=== PATIENT | male | born 1985 | race Caucasian/White ===

== ENCOUNTER 2020-03-11 12:41 | Outpatient (REF) | payer OTHER, SELFPAY ==
--- NOTE | 2020-03-11 | XR_ITS ---
EXAMINATION: XR THORACIC SPINE XR LUMBAR SPINE CLINICAL INFORMATION: Acute right-sided pain. COMPARISON: None TECHNIQUE: Lumbar spine 3 views. Thoracic spine 3 views. FINDINGS: THORACIC SPINE: Mild rightward curvature on the frontal projection. The upper thoracic vertebral bodies are partially obscured on the lateral projection by overlapping soft tissue. No evidence of acute fracture. Disc spaces are relatively maintained. Minimal spondylosis present. LUMBAR SPINE: Mild leftward curvature. Alignment is maintained without subluxation. Vertebral body heights are maintained. No evidence of acute fracture. Mild L5-S1 disc space narrowing. SI joints are intact. IMPRESSION: 1. No evidence of acute osseous abnormality in the thoracic spine. Mild thoracic spondylosis. 2. No acute osseous abnormality evident in the lumbar spine. Mild L5-S1 disc degeneration.
--- NOTE | 2020-03-11 | XR_ITS ---
EXAMINATION: XR CHEST CLINICAL INFORMATION: Mild persistent asthma COMPARISON: 07/20/2018 TECHNIQUE: 2 views of the chest were obtained. FINDINGS: Normal cardiac and mediastinal silhouette. Pulmonary josiane are stable. There is mild peribronchial thickening. No focal consolidation, effusion, edema or pneumothorax. No acute osseous abnormality. IMPRESSION: No evidence of acute consolidation..
[2020-03-12 08:19] LABS: SARS COV2 IgG Negative (Negative)
== END 2020-03-11 12:42 | disposition home or self-care (01) ==
LOC: HO.HMGCLDS 12:41
PROVIDERS: PCP Internal Medicine; Visit Provider Internal Medicine
DX: J45.30 Mild persistent asthma, uncomplicated (principal); M54.9 Dorsalgia, unspecified
CPT/HCPCS: 71046; 72072; 72100; 86769

== ENCOUNTER 2020-04-07 10:04 | Emergency (ER) | payer OTHER, SELFPAY ==
--- NOTE | 2020-04-07 10:21 | ED.ABDPAIN ---
HPI - Abdominal Pain General Chief Complaint: Abdominal Pain <Arline Denise NP - Last Filed: 04/07/20 14:52> Stated Complaint: ABDOMINAL PAIN <Arline Denise NP - Last Filed: 04/07/20 14:52> Time Seen by Provider: 04/07/20 10:15 <Arline Denise NP - Last Filed: 04/07/20 14:52> Source: patient <Arline Denise NP - Last Filed: 04/07/20 14:52> Mode of arrival: ambulatory <Arline Denise NP - Last Filed: 04/07/20 14:52> Limitations: no limitations <Arline Denise NP - Last Filed: 04/07/20 14:52> History of Present Illness HPI narrative: 34-year-old male with a past medical history of asthma, hepatitis B currently here with epigastric and substernal chest pain for the last week. The pain is worsened with deep breathing, sneezing, movement and palpation. He denies any cough, shortness of breath, vomiting, diarrhea, fevers or chills. He uses inhaler at home once which did seem to improve some of his symptoms. Pain is not worsened with eating. Recent travel. No sick contacts. No family history of blood clots. No leg pain. <Arline Denise NP - Last Filed: 04/07/20 14:52> Pain Consistency: intermittent <SOHAN Manriquez Last Filed: 04/07/20 14:52> Location: chest and epigastric <SOHAN Manriquez Last Filed: 04/07/20 14:52> Severity: mild <SOHAN Manriquez Last Filed: 04/07/20 14:52> Quality: sharp <SOHAN Manriquez Last Filed: 04/07/20 14:52> Radiation: epigastric <SOHAN Manriquez Last Filed: 04/07/20 14:52> Migration to: no migration <SOHAN Manriquez Last Filed: 04/07/20 14:52> Exacerbating factors: movement <SOHAN Manriquez Last Filed: 04/07/20 14:52> Relieving factors: rest <SOHAN Manriquez Last Filed: 04/07/20 14:52> Associated symptoms: denies other symptoms <SOHAN Manriquez Last Filed: 04/07/20 14:52> Related Data Home Medications: Previous Rx's Medication Instructions Recorded omeprazole 20 mg PO DAILY #30 cap 04/07/20 <SOHAN Manriquez Last Filed: 04/07/20 14:52> Allergies/Adverse Reactions: Allergies Allergy/AdvReac Type Severity Reaction Status Date / Time No Known Allergies Allergy Unverified 02/21/20 19:11 [No Known Allergies*] <SOHAN Manriquez Last Filed: 04/07/20 14:52> Review of Systems Review of Systems Yes all other systems are reviewed and are negative <SOHAN Manriquez Last Filed: 04/07/20 14:52> Constitutional: Reports no additional constitutional complaints, Denies body ache(s), Denies chills, Denies fever(s), Denies headache(s) and Denies weakness <SOHAN Manriquez Last Filed: 04/07/20 14:52> Eyes: Reports no additional eye complaints and Denies change in vision <SOHAN Manriquez Last Filed: 04/07/20 14:52> Reports system reviewed and no additional complaints, except as documented, Denies dizziness, Denies headache(s), Denies nasal congestion, Denies nasal discharge and Denies neck pain <SOHAN Manriquez Last Filed: 04/07/20 14:52> Cardiovascular: Reports no additional cardiovascular complaints, Reports chest pain, Denies leg edema and Denies dyspnea <SOHAN Manriquez Last Filed: 04/07/20 14:52> Respiratory: Reports no additional respiratory complaints, Denies cough and Denies dyspnea <SOHAN Manriquez Last Filed: 04/07/20 14:52> Gastrointestinal: Reports no additional gastrointestinal complaints, Reports abdominal pain, Denies diarrhea, Denies nausea and Denies vomiting <Arline Denise NP - Last Filed: 04/07/20 14:52> Genitourinary: Denies urinary incontinence <Arline Denise NP - Last Filed: 04/07/20 14:52> Musculoskeletal: Reports no additional musculoskeletal complaints, Denies back pain, Denies arthralgias, Denies joint swelling, Denies neck pain, Denies numbness and Denies tingling <Arline Denise NP - Last Filed: 04/07/20 14:52> Skin/Breast: Reports system reviewed and no additional complaints, except as docu and Denies rash <Arline Denise NP - Last Filed: 04/07/20 14:52> Reports system reviewed and no additional complaints, except as documented, Denies Abnormal speech present, Denies dizziness, Denies headache(s), Denies numbness, Denies tingling and Denies weakness <Arline eDnise NP - Last Filed: 04/07/20 14:52> Physical Exam Vital Signs: Vital Signs: Vital Signs Temp Pulse Resp BP Pulse Ox 04/07/20 14:00 98.0 F 69 16 106/71 04/07/20 12:00 98.2 F 69 16 100/68 99 04/07/20 10:37 98.1 F 70 18 107/71 98 Body Mass Index 21.6 <Arline Denise NP - Last Filed: 04/07/20 14:52> Vital Signs: Vital Signs Temp Pulse Resp BP Pulse Ox 04/07/20 14:00 98.0 F 69 16 106/71 04/07/20 12:00 98.2 F 69 16 100/68 99 04/07/20 10:37 98.1 F 70 18 107/71 98 Body Mass Index 21.6 <Doyle Ernandez MD - Last Filed: 04/07/20 15:52> Const: General: cooperative, healthy appearing, comfortable and no acute distress <Arline Denise NP - Last Filed: 04/07/20 14:52> Orientation/consciousness: patient oriented x3 <Arline Denise NP - Last Filed: 04/07/20 14:52> Limitations: no limitations <Arline Denise NP - Last Filed: 04/07/20 14:52> HENMT: Head: Yes normal to inspection <Arline Denise NP - Last Filed: 04/07/20 14:52> Ears: hearing grossly normal bilaterally <Arline Denise NP - Last Filed: 04/07/20 14:52> General nose exam: Normal external nose present <Arline Denise NP - Last Filed: 04/07/20 14:52> Face and sinus: Yes normal facial exam <Arline Denise NP - Last Filed: 04/07/20 14:52> Mouth: Normal oral and palatal mucosa present <Arline Denise NP - Last Filed: 04/07/20 14:52> Throat: Yes posterior oropharynx normal <Arline Denise NP - Last Filed: 04/07/20 14:52> Eyes: General: appearance normal, both eyes and all related structures <Arline Denise NP - Last Filed: 04/07/20 14:52> Pupils: Equal, round and reactive pupils present <Arline Denise NP - Last Filed: 04/07/20 14:52> Neck: Neck: Yes normal visual inspection <Arline Denise NP - Last Filed: 04/07/20 14:52> Chest: Chest palpation & inspection: normal inspection of the chest and tenderness ( Substernal tenderness. No crepitus, bony abnormality) <Arline Denise NP - Last Filed: 04/07/20 14:52> Resp: Effort & Inspection: normal respiratory effort <Arline Denise NP - Last Filed: 04/07/20 14:52> Auscultation: clear to auscultation bilaterally <Arline Denise NP - Last Filed: 04/07/20 14:52> Cardio: Rate: regular rate <Arline Denise NP - Last Filed: 04/07/20 14:52> Rhythm: regular rhythm <Arline Denise NP - Last Filed: 04/07/20 14:52> Peripheral pulses: Peripheral pulses 2+ throughout <Arline Denise NP - Last Filed: 04/07/20 14:52> GI: Inspection: Yes normal to inspection <Arline Denise NP - Last Filed: 04/07/20 14:52> Palpation (GI): Soft to palpation and Tenderness to palpation present (GI) ( mild epigastric tenderness. No rebound or guarding.) <Arline Denise NP - Last Filed: 04/07/20 14:52> Auscultation: normal bowel sounds <Arline Denise NP - Last Filed: 04/07/20 14:52> Back/Spine/Pelvis: Thoracic/Lumbar Spine: thoracic and lumbar spine normal to inspection <Arline Densie NP - Last Filed: 04/07/20 14:52> Skin: General skin exam: no rashes or lesions noted <Arline Denise NP - Last Filed: 04/07/20 14:52> Neuro: General: patient oriented x3, no focal motor deficits and normal sensation to monofilament <Arline Denise NP - Last Filed: 04/07/20 14:52> Cranial nerves: Yes Equal, round and reactive pupils present <Arline Denise NP - Last Filed: 04/07/20 14:52> Cognition (Neuro): normal cognition <Arline Denise NP - Last Filed: 04/07/20 14:52> Speech: No Abnormal speech present <Arline Denise NP - Last Filed: 04/07/20 14:52> Gait exam (Neuro): Normal gait present <Arline Denise NP - Last Filed: 04/07/20 14:52> Motor exam (neuro): 5/5 motor strength present throughout <Arline Denise NP - Last Filed: 04/07/20 14:52> Extrem: General: Yes normal to inspection <Arline Denise NP - Last Filed: 04/07/20 14:52> Course Course Course Narrative: 34-year-old male here with substernal chest pain and epigastric pain for the last week. Exam is consistent with redo reproducible pain Over the epigastric area and substernal area. More consistent with musculoskeletal pain. Will check labs, EKG, chest x-ray and reassess. 1330- Initial labs, EKG and chest x-ray unremarkable. The patient tells me he has some mild improvement in symptoms with still has some epigastric discomfort on exam. Will give PPI, GI cocktail, check abdominal ultrasound. 1445-Abdominal US Negative. The erp technical lead remarked that the patient was tender over the right upper quadrant. I went in to re-examine the patient and he has no focal tenderness in the right upper quadrant. He has some mild epigastric discomfort which he tells me is much improved after receiving his GI cocktail. Likely more GERD or gastritis. Less likely acute cholecystitis with unremarkable ultrasound, unremarkable labs(no leukocytosis, normal LFTS). discussed this with the patient. He has an appointment tomorrow with his primary care doctor. I recommended he discuss his ER visit with his primary care doctor. We discussed trialing a PPI for home. Reviewed worrisome signs and symptoms and when to return To the emergency department. Comfortable with discharge home. <Arline Denise NP - Last Filed: 04/07/20 14:52> I have reviewed the chart <Doyle Ernandez MD - Last Filed: 04/07/20 15:52> MDM - Abdominal Pain MDM Narrative Medical decision making narrative: Considered ACS, costochondritis, chest wall strain, PE, pneumothorax, GERD, gastritis, gastroenteritis, cholecystitis, Less likely ACS with atypical symptoms, negative troponin and unremarkable EKG. Considered costochondritis or chest wall strain with very reproducible pain improved with Toradol. Less likely PE with PERC score 0. Less likely pneumothorax with negative chest x-ray. Less likely acute cholecystitis with unremarkable abdominal ultrasound. Considered GERD, gastritis <Arline Denise NP - Last Filed: 04/07/20 14:52> Medical Records Attestation: I reviewed the patient's medical records. <Arline Denise NP - Last Filed: 04/07/20 14:52> Lab Data Attestation: I reviewed the patient's lab results. <Arline Denise NP - Last Filed: 04/07/20 14:52> Result diagrams: : 04/07/20 11:27 04/07/20 11:27 <Arline Denise, ROOF BOLTER - Last Filed: 04/07/20 14:52> Labs: Lab Results 04/07/20 04/07/20 04/07/20 Range/Units 11:27 11:27 11:27 WBC 6.8 (4.8-10.8) X10*3/uL RBC 4.87 (4.60-5.80) X10*6/uL Hgb 14.6 (14.0-18.0) g/dl Hct 43.8 (42-52) % MCV 89.9 (80-98) fL MCH 30.0 (27.0-33.0) pg MCHC 33.3 (31.0-36.0) g/dl RDW 13.2 (11.0-16.0) % Plt Count 263 (160-400) X10*3/uL MPV 9.8 (9.4-12.4) fL Immature Gran % (Auto) 0.1 (0.0-0.4) % Neut % (Auto) 58.2 (45-73) % Lymph % (Auto) 25.9 (20-40) % [place] % (Auto) 8.3 (2-11) % Eos % (Auto) 6.6 H (0-4) % Baso % (Auto) 0.9 (0-2) % Lymph # (Auto) 1.8 (1.2-4.9) X10*3/uL [place] # (Auto) 0.6 (0.1-1.2) X10*3/uL Eos # (Auto) 0.5 H (0.0-0.4) X10*3/uL Baso # (Auto) 0.1 (0.0-0.2) X10*3/uL Abs Immat Gran (auto) 0.01 (0.00-0.03) X10*3/uL Absolute Neuts (auto) 4.0 (2.0-8.3) X10*3/uL Absolute Nucleated RBC 0.000 (0.0-0.012) X10*3/uL Nucleated RBC % (auto) 0.0 (0.0-0.2) /100WBC PT 12.6 (10.8-13.0) SEC INR 1.1 (0.9-1.1) Sodium 138 (135-145) mmol/L Potassium 4.7 (3.3-5.1) mmol/l Chloride 102 (96-108) mmol/L Carbon Dioxide 30 H (22-29) mmol/L Anion Gap 11 L (12-20) BUN 14 (9-16) mg/dL Creatinine 0.67 (0.5-1.4) mg/dL Estim Creat Clear Calc 134.9 Estimated GFR > 60 Random Glucose 96 (60-115) mg/dL Calcium 8.5 (8.4-10.2) mg/dL Magnesium 2.1 (1.6-2.6) mg/dL Total Bilirubin 0.4 (0.0-1.0) mg/dL Direct Bilirubin 0.2 (0.0-0.5) mg/dL AST 21 (5-37) U/L ALT 27 (0-40) U/L Alkaline Phosphatase 71 (39-117) U/L Troponin I High Sens (<3.5-35.0) ng/L Total Protein 6.9 (6.5-8.0) g/dL Albumin 4.3 (3.5-5.0) g/dL Lipase 21 (8-78) U/L Urine Color Urine Appearance Urine pH (5.0-8.0) Ur Specific [place] (1.005-1.025) Urine Protein (NEG-TRACE) MG/DL Urine Glucose (UA) (NEG) MG/DL Urine Ketones (NEG) MG/DL Urine Blood (NEG) Urine Nitrite (NEG) Ur Leukocyte Esterase (NEG) 04/07/20 04/07/20 Range/Units 11:27 11:45 WBC (4.8-10.8) X10*3/uL RBC (4.60-5.80) X10*6/uL Hgb (14.0-18.0) g/dl Hct (42-52) % MCV (80-98) fL MCH (27.0-33.0) pg MCHC (31.0-36.0) g/dl RDW (11.0-16.0) % Plt Count (160-400) X10*3/uL MPV (9.4-12.4) fL Immature Gran % (Auto) (0.0-0.4) % Neut % (Auto) (45-73) % Lymph % (Auto) (20-40) % [place] % (Auto) (2-11) % Eos % (Auto) (0-4) % Baso % (Auto) (0-2) % Lymph # (Auto) (1.2-4.9) X10*3/uL [place] # (Auto) (0.1-1.2) X10*3/uL Eos # (Auto) (0.0-0.4) X10*3/uL Baso # (Auto) (0.0-0.2) X10*3/uL Abs Immat Gran (auto) (0.00-0.03) X10*3/uL Absolute Neuts (auto) (2.0-8.3) X10*3/uL Absolute Nucleated RBC (0.0-0.012) X10*3/uL Nucleated RBC % (auto) (0.0-0.2) /100WBC PT (10.8-13.0) SEC INR (0.9-1.1) Sodium (135-145) mmol/L Potassium (3.3-5.1) mmol/l Chloride (96-108) mmol/L Carbon Dioxide (22-29) mmol/L Anion Gap (12-20) BUN (9-16) mg/dL Creatinine (0.5-1.4) mg/dL Estim Creat Clear Calc Estimated GFR Random Glucose (60-115) mg/dL Calcium (8.4-10.2) mg/dL Magnesium (1.6-2.6) mg/dL Total Bilirubin (0.0-1.0) mg/dL Direct Bilirubin (0.0-0.5) mg/dL AST (5-37) U/L ALT (0-40) U/L Alkaline Phosphatase (39-117) U/L Troponin I High Sens < 3.5 (<3.5-35.0) ng/L Total Protein (6.5-8.0) g/dL Albumin (3.5-5.0) g/dL Lipase (8-78) U/L Urine Color YELLOW Urine Appearance CLEAR Urine pH 8.0 (5.0-8.0) Ur Specific [place] 1.020 (1.005-1.025) Urine Protein NEG (NEG-TRACE) MG/DL Urine Glucose (UA) NEG (NEG) MG/DL Urine Ketones NEG (NEG) MG/DL Urine Blood NEG (NEG) Urine Nitrite NEG (NEG) Ur Leukocyte Esterase NEG (NEG) <Arline Denise NP - Last Filed: 04/07/20 14:52> Lab Results 04/07/20 04/07/20 04/07/20 Range/Units 11:27 11:27 11:27 WBC 6.8 (4.8-10.8) X10*3/uL RBC 4.87 (4.60-5.80) X10*6/uL Hgb 14.6 (14.0-18.0) g/dl Hct 43.8 (42-52) % MCV 89.9 (80-98) fL MCH 30.0 (27.0-33.0) pg MCHC 33.3 (31.0-36.0) g/dl RDW 13.2 (11.0-16.0) % Plt Count 263 (160-400) X10*3/uL MPV 9.8 (9.4-12.4) fL Immature Gran % (Auto) 0.1 (0.0-0.4) % Neut % (Auto) 58.2 (45-73) % Lymph % (Auto) 25.9 (20-40) % [place] % (Auto) 8.3 (2-11) % Eos % (Auto) 6.6 H (0-4) % Baso % (Auto) 0.9 (0-2) % Lymph # (Auto) 1.8 (1.2-4.9) X10*3/uL [place] # (Auto) 0.6 (0.1-1.2) X10*3/uL Eos # (Auto) 0.5 H (0.0-0.4) X10*3/uL Baso # (Auto) 0.1 (0.0-0.2) X10*3/uL Abs Immat Gran (auto) 0.01 (0.00-0.03) X10*3/uL Absolute Neuts (auto) 4.0 (2.0-8.3) X10*3/uL Absolute Nucleated RBC 0.000 (0.0-0.012) X10*3/uL Nucleated RBC % (auto) 0.0 (0.0-0.2) /100WBC PT 12.6 (10.8-13.0) SEC INR 1.1 (0.9-1.1) Sodium 138 (135-145) mmol/L Potassium 4.7 (3.3-5.1) mmol/l Chloride 102 (96-108) mmol/L Carbon Dioxide 30 H (22-29) mmol/L Anion Gap 11 L (12-20) BUN 14 (9-16) mg/dL Creatinine 0.67 (0.5-1.4) mg/dL Estim Creat Clear Calc 134.9 Estimated GFR > 60 Random Glucose 96 (60-115) mg/dL Calcium 8.5 (8.4-10.2) mg/dL Magnesium 2.1 (1.6-2.6) mg/dL Total Bilirubin 0.4 (0.0-1.0) mg/dL Direct Bilirubin 0.2 (0.0-0.5) mg/dL AST 21 (5-37) U/L ALT 27 (0-40) U/L Alkaline Phosphatase 71 (39-117) U/L Troponin I High Sens (<3.5-35.0) ng/L Total Protein 6.9 (6.5-8.0) g/dL Albumin 4.3 (3.5-5.0) g/dL Lipase 21 (8-78) U/L Urine Color Urine Appearance Urine pH (5.0-8.0) Ur Specific [place] (1.005-1.025) Urine Protein (NEG-TRACE) MG/DL Urine Glucose (UA) (NEG) MG/DL Urine Ketones (NEG) MG/DL Urine Blood (NEG) Urine Nitrite (NEG) Ur Leukocyte Esterase (NEG) 04/07/20 04/07/20 Range/Units 11:27 11:45 WBC (4.8-10.8) X10*3/uL RBC (4.60-5.80) X10*6/uL Hgb (14.0-18.0) g/dl Hct (42-52) % MCV (80-98) fL MCH (27.0-33.0) pg MCHC (31.0-36.0) g/dl RDW (11.0-16.0) % Plt Count (160-400) X10*3/uL MPV (9.4-12.4) fL Immature Gran % (Auto) (0.0-0.4) % Neut % (Auto) (45-73) % Lymph % (Auto) (20-40) % [place] % (Auto) (2-11) % Eos % (Auto) (0-4) % Baso % (Auto) (0-2) % Lymph # (Auto) (1.2-4.9) X10*3/uL [place] # (Auto) (0.1-1.2) X10*3/uL Eos # (Auto) (0.0-0.4) X10*3/uL Baso # (Auto) (0.0-0.2) X10*3/uL Abs Immat Gran (auto) (0.00-0.03) X10*3/uL Absolute Neuts (auto) (2.0-8.3) X10*3/uL Absolute Nucleated RBC (0.0-0.012) X10*3/uL Nucleated RBC % (auto) (0.0-0.2) /100WBC PT (10.8-13.0) SEC INR (0.9-1.1) Sodium (135-145) mmol/L Potassium (3.3-5.1) mmol/l Chloride (96-108) mmol/L Carbon Dioxide (22-29) mmol/L Anion Gap (12-20) BUN (9-16) mg/dL Creatinine (0.5-1.4) mg/dL Estim Creat Clear Calc Estimated GFR Random Glucose (60-115) mg/dL Calcium (8.4-10.2) mg/dL Magnesium (1.6-2.6) mg/dL Total Bilirubin (0.0-1.0) mg/dL Direct Bilirubin (0.0-0.5) mg/dL AST (5-37) U/L ALT (0-40) U/L Alkaline Phosphatase (39-117) U/L Troponin I High Sens < 3.5 (<3.5-35.0) ng/L Total Protein (6.5-8.0) g/dL Albumin (3.5-5.0) g/dL Lipase (8-78) U/L Urine Color YELLOW Urine Appearance CLEAR Urine pH 8.0 (5.0-8.0) Ur Specific [place] 1.020 (1.005-1.025) Urine Protein NEG (NEG-TRACE) MG/DL Urine Glucose (UA) NEG (NEG) MG/DL Urine Ketones NEG (NEG) MG/DL Urine Blood NEG (NEG) Urine Nitrite NEG (NEG) Ur Leukocyte Esterase NEG (NEG) <Doyle Ernandez MD - Last Filed: 04/07/20 15:52> Imaging Data Chest x-ray: Radiologist's impression: EXAMINATION: XR CHEST CLINICAL INFORMATION: Chest pain COMPARISON: Previous chest x-rays most recent 03/11/2020 TECHNIQUE: 2 views of the chest were obtained. FINDINGS: No significant abnormality is noted involving the heart, lungs, mediastinum, bony thorax or soft tissues. XR/XR chest 2V IMPRESSION: Unremarkable examination. <Arline Denise NP - Last Filed: 04/07/20 14:52> US - abdomen: Attestation: I personally reviewed and interpreted this imaging study as follows: <Arline Denise NP - Last Filed: 04/07/20 14:52> Radiologist's impression: EXAMINATION: US ABDOMEN LIMITED CLINICAL INFORMATION: Upper abdominal pain. Evaluate gallbladder.. COMPARISON: Previous abdominal ultrasound October [address] of the abdomen and pelvis January 2020 TECHNIQUE: Real-time imaging of the gallbladder. FINDINGS: The gallbladder is normal in size and shape. No gallstones are seen. The gallbladder wall does not appear thickened. There is no pericholecystic fluid. The cytotechnologist/histotechnologist reports that the patient is tender over the gallbladder. There is no intra or extrahepatic biliary duct dilatation. The mid and distal common bile duct is not well visualized due to bowel gas. The proximal common bile duct measures 0.3 cm in diameter. US/US abdomen limited IMPRESSION: Normal-appearing gallbladder. The cytotechnologist/histotechnologist reports that the patient is tender over the gallbladder. <Arline Denise NP - Last Filed: 04/07/20 14:52> ECG Data Attestation: I personally reviewed and interpreted this ECG as follows: <Arline Denise NP - Last Filed: 04/07/20 14:52> ECG interpretation date: 04/07/20 <Arline Denise NP - Last Filed: 04/07/20 14:52> ECG interpretation time: 11: <Arline Denise NP - Last Filed: 04/07/20 14:52> Interpretation: normal sinus rhythm, normal TN, normal QRS, normal QT, normal ST segment <Arline Denise NP - Last Filed: 04/07/20 14:52> Discharge Plan Discharge Clinical Impression: Gastroesophageal reflux disease <Arline Denise NP - Last Filed: 04/07/20 14:52> Patient Disposition: Home, Self-Care <Arline Denise NP - Last Filed: 04/07/20 14:52> Instructions: Gastroesophageal Reflux Disease (ED) <Arline Denise NP - Last Filed: 04/07/20 14:52> Additional Instructions: [place] diet, limit spicy/citrus/caffeine Do not lay flat for at least 30 minutes after eating <Arline Denise NP - Last Filed: 04/07/20 14:52> Prescriptions: New omeprazole 20 mg capsule,delayed release(DR/EC) 20 mg PO DAILY Qty: 30 RF: 0 <Arline Denise NP - Last Filed: 04/07/20 14:52> Referrals: Rob Mcnair MD, DO [Primary Care Provider] - 2 days <Arline Denise NP - Last Filed: 04/07/20 14:52> Interventions: ED Discharge Assessment Last Done: 04/07/20 14:47 <Arline Denise NP - Last Filed: 04/07/20 14:52> Discharge Date/Time: 04/07/20 14:45 <Arline Denise NP - Last Filed: 04/07/20 14:52> PMFSH Past Medical History Source: obtained from family and nursing notes reviewed <Arline Denise NP - Last Filed: 04/07/20 14:52> Medical History: Medical History Asthma <Arline Denise NP - Last Filed: 04/07/20 14:52> Social History Social History: Social History Smoking Status: Never smoker Use of substances other than those prescribed or required for medical reasons: No Advance Directives: No Advance Directives Information Provided: No <Arline Denise NP - Last Filed: 04/07/20 14:52>
[2020-04-07 10:37] VITALS: BP 107/71; PULSE 70; RESP 18; TEMP 36.7; O2SAT 98; BMI 21.6
--- NOTE | 2020-04-07 10:39 | ECG_ITS ---
Test Reason : CP Blood Pressure : / mmHG Vent. Rate : 066 BPM Atrial Rate : 066 BPM P-R Int : 150 ms QRS Dur : 078 ms QT Int : 370 ms P-R-T Axes : 013 039 029 degrees QTc Int : 387 ms Normal sinus rhythm Normal ECG No previous ECGs available Referred By: Arline Denise Electronically Signed By:SHAWNA BETTENCOURT MD
--- NOTE | 2020-04-07 10:39 | XR_ITS ---
EXAMINATION: XR CHEST CLINICAL INFORMATION: Chest pain COMPARISON: Previous chest x-rays most recent 03/11/2020 TECHNIQUE: 2 views of the chest were obtained. FINDINGS: No significant abnormality is noted involving the heart, lungs, mediastinum, bony thorax or soft tissues. XR/XR chest 2V IMPRESSION: Unremarkable examination.
[2020-04-07 11:37] LABS: MANUAL DIFF FLAG NO
[2020-04-07 11:39] LABS: Basophils Absolute Auto 0.1 X10*3/uL (0.0-0.2); Basophils Percent Auto 0.9 % (0-2); Eosinophils Absolute Auto 0.5 X10*3/uL (0.0-0.4); Eosinophils Percent Auto 6.6 % (0-4); Hematocrit 43.8 % (42-52); Hemoglobin 14.6 g/dl (14.0-18.0); Imm Gran Abs Auto 0.01 X10*3/uL (0.00-0.03); Imm Gran Pct Auto 0.1 % (0.0-0.4); Lymphocytes Absolute Auto 1.8 X10*3/uL (1.2-4.9); Lymphocytes Percent Auto 25.9 % (20-40); Mean Corpuscular HGB Conc 33.3 g/dl (31.0-36.0); Mean Corpuscular Volume 89.9 fL (80-98); Mean Platelet Volume 9.8 fL (9.4-12.4); Monocytes Absolute Auto 0.6 X10*3/uL (0.1-1.2); Monocytes Percent Auto 8.3 % (2-11); Neutrophils Percent Auto 58.2 % (45-73); Platelet Count 263 X10*3/uL (160-400); Red Blood Count 4.87 X10*6/uL (4.60-5.80); Red Cell Distribution Width 13.2 % (11.0-16.0); White Blood Count 6.8 X10*3/uL (4.8-10.8)
[2020-04-07] MEDS: Ketorolac Tromethamine 30 MG/ML VIAL IVPUSH (11:41)
[2020-04-07 11:51] LABS: INTERNATIONAL NORM RATIO 1.1 (0.9-1.1); Prothrombin Time 12.6 SEC (10.8-13.0)
[2020-04-07 12:00] VITALS: BP 100/68; PULSE 69; RESP 16; TEMP 36.8; O2SAT 99
[2020-04-07 12:06] LABS: Glucose Urine UA NEG (NEG); Leukocyte Esterase Urine NEG (NEG); Nitrite Urine NEG (NEG); Urine Blood NEG (NEG); Urine Ketones NEG (NEG); Urine Protein NEG (NEG-TRACE)
[2020-04-07 12:11] LABS: Alanine Aminotransferase 27 U/L (0-40); Albumin Level 4.3 g/dL (3.5-5.0); Alkaline Phosphatase 71 U/L (39-117); Anion Gap 11 (12-20); Aspartate Amino Transferase 21 U/L (5-37); Bilirubin Direct 0.2 mg/dL (0.0-0.5); Bilirubin Total 0.4 mg/dL (0.0-1.0); Blood Urea Nitrogen 14 mg/dL (9-16); Calcium 8.5 mg/dL (8.4-10.2); Carbon Dioxide 30 mmol/L (22-29); Chloride 102 mmol/L (96-108); Creatinine Clr Calc Pharmacy 134.9; Estimated Glomerular Filt Rate > 60; Glucose Random 96 mg/dL (60-115); Lipase 21 U/L (8-78); Magnesium 2.1 mg/dL (1.6-2.6); Potassium 4.7 mmol/l (3.3-5.1); Sodium 138 mmol/L (135-145); Total Protein 6.9 g/dL (6.5-8.0)
[2020-04-07 12:14] LABS: Troponin-I High Sensitivity < 3.5 ng/L (<3.5-35.0)
[2020-04-07 12:16] LABS: Appearance Urine CLEAR; Color Urine YELLOW; UACC Culture Trigger NO
--- NOTE | 2020-04-07 12:34 | US_ITS ---
EXAMINATION: US ABDOMEN LIMITED CLINICAL INFORMATION: Upper abdominal pain. Evaluate gallbladder.. COMPARISON: Previous abdominal ultrasound October [address] of the abdomen and pelvis January 2020 TECHNIQUE: Real-time imaging of the gallbladder. FINDINGS: The gallbladder is normal in size and shape. No gallstones are seen. The gallbladder wall does not appear thickened. There is no pericholecystic fluid. The eeg technologist reports that the patient is tender over the gallbladder. There is no intra or extrahepatic biliary duct dilatation. The mid and distal common bile duct is not well visualized due to bowel gas. The proximal common bile duct measures 0.3 cm in diameter. US/US abdomen limited IMPRESSION: Normal-appearing gallbladder. The eeg technologist reports that the patient is tender over the gallbladder.
[2020-04-07] MEDS: Lidocaine HCl Viscous 2 % 15 ML SOLUTION MUCOUS MEM (12:53)
[2020-04-07] MEDS: Magnesium Hydrox/Alum Hydrox 30 ML ORAL.SUSP PO (12:53)
[2020-04-07] MEDS: Famotidine/PF 20 MG/2 ML VIAL IVPUSH (12:53)
[2020-04-07 14:00] VITALS: BP 106/71; PULSE 69; RESP 16; TEMP 36.7
== END 2020-04-07 14:45 | disposition home or self-care (01) ==
PROVIDERS: Nurse Practitioner Family; Emergency Provider Emergency Medicine; PCP Internal Medicine
DX: K21.9 Gastro-esophageal reflux disease without esophagitis (principal); R07.9 Chest pain, unspecified
CPT/HCPCS: 36415; 71046; 76705; 80048; 80076; 81003; 83690; 83735; 84484; 85025; 85610; 93005; 96374; 96375; 99284; J1885

== ENCOUNTER 2020-05-20 15:50 | Outpatient (REF) | payer OTHER, SELFPAY ==
[2020-05-20 17:03] LABS: Alanine Aminotransferase 29 U/L (0-40); Albumin Level 4.6 g/dL (3.5-5.0); Alkaline Phosphatase 97 U/L (39-117); Aspartate Amino Transferase 23 U/L (5-37); Bilirubin Direct < 0.2 mg/dL (0.0-0.5); Bilirubin Total 0.3 mg/dL (0.0-1.0); Total Protein 7.3 g/dL (6.5-8.0)
[2020-05-21 09:22] LABS: Hepatitis A Antibody IgG REACTIVE (Nonreactive); ~Hepatitis A Antibody IgG 11.16 S/CO (0.00-0.99)
[2020-05-22 12:57] LABS: Hepatitis BE Antibody REACTIVE (NON-REACTIVE); Hepatitis BE Antigen NON-REACTIVE (NON-REACTIVE)
[2020-05-24 00:42] LABS: FIB-ALT 25 U/L (9-46); FIB-Alpha-2-Macroglobulin 189 mg/dL (106-279); FIB-Apolipoprotein A1 153 mg/dL (94-176); FIB-GGT 11 U/L (3-90); FIB-Haptoglobin 123 mg/dL (43-212); FIB-Total Bilirubin 0.3 mg/dL (0.2-1.2); Liver Fibrosis Score 0.07; Liver Fibrosis Stage F0; Nec Inflam Act Grade A0; Nec Inflam Act Score 0.08
[2020-05-25 18:03] LABS: Hepatitis B Viral DNA QN Log 3.08 Log IU/mL; Hepatitis B Viral DNA Qn-IU/mL 1210 IU/mL
[2020-05-29 15:12] LABS: BCP Mutations NOT DETECTED; HBV Genotype D; Polymerase Mutations NOT DETECTED; Precore Mutations DETECTED
== END 2020-05-20 15:51 | disposition home or self-care (01) ==
LOC: HO.LAB 15:50
PROVIDERS: PCP Internal Medicine; Visit Provider Internal Medicine Gastroenterology
DX: B19.10 Unspecified viral hepatitis B without hepatic coma (principal)
CPT/HCPCS: 80076; 81596; 86707; 86708; 87350; 87912

== ENCOUNTER 2020-06-17 14:50 | Outpatient (REF) | payer OTHER, SELFPAY ==
--- NOTE | 2020-06-17 | XR_ITS ---
EXAMINATION: XR CHEST CLINICAL INFORMATION: Mild persistent asthma. COMPARISON: None TECHNIQUE: 2 views of the chest were obtained. FINDINGS: The lungs are hyperexpanded but clear of acute process. The heart size and pulmonary vascularity is normal. No gross bony abnormality seen. XR/XR chest 2V IMPRESSION: Hyperinflated lungs are clear.
[2020-06-17 16:32] LABS: MANUAL DIFF FLAG NO
[2020-06-17 16:44] LABS: Basophils Percent Auto 0.3 % (0-2); Eosinophils Absolute Auto 0.3 X10*3/uL (0.0-0.4); Eosinophils Percent Auto 3.1 % (0-4); Hematocrit 44.9 % (42-52); Hemoglobin 14.9 g/dl (14.0-18.0); Imm Gran Abs Auto 0.03 X10*3/uL (0.00-0.03); Imm Gran Pct Auto 0.3 % (0.0-0.4); Lymphocytes Percent Auto 20.6 % (20-40); Mean Corpuscular HGB Conc 33.2 g/dl (31.0-36.0); Mean Corpuscular Hemoglobin 29.4 pg (27.0-33.0); Mean Corpuscular Volume 88.6 fL (80-98); Mean Platelet Volume 10.4 fL (9.4-12.4); Monocytes Percent Auto 10.3 % (2-11); Neutrophils Absolute Auto 6.2 X10*3/uL (2.0-8.3); Neutrophils Percent Auto 65.4 % (45-73); Platelet Count 263 X10*3/uL (160-400); Red Blood Count 5.07 X10*6/uL (4.60-5.80); Red Cell Distribution Width 12.4 % (11.0-16.0); White Blood Count 9.5 X10*3/uL (4.8-10.8)
[2020-06-17 17:08] LABS: Alanine Aminotransferase 29 U/L (0-40); Albumin Level 4.7 g/dL (3.5-5.0); Alkaline Phosphatase 84 U/L (39-117); Anion Gap 12 (12-20); Aspartate Amino Transferase 23 U/L (5-37); Bilirubin Total 0.6 mg/dL (0.0-1.0); Blood Urea Nitrogen 9 mg/dL (9-16); C Reactive Protein 1.87 mg/dL (< or = 0.50); Calcium 9.4 mg/dL (8.4-10.2); Carbon Dioxide 31 mmol/L (22-29); Chloride 102 mmol/L (96-108); Estimated Glomerular Filt Rate > 60; Glucose Random 80 mg/dL (60-115); Potassium 4.2 mmol/l (3.3-5.1); Sodium 141 mmol/L (135-145); Total Protein 7.4 g/dL (6.5-8.0)
== END 2020-06-17 14:51 | disposition home or self-care (01) ==
LOC: HO.HMGCLDS 14:50
PROVIDERS: PCP Internal Medicine; Visit Provider Internal Medicine
DX: R07.89 Other chest pain (principal); J45.30 Mild persistent asthma, uncomplicated
CPT/HCPCS: 36415; 71046; 80053; 85025; 86140

== ENCOUNTER 2020-06-18 22:18 | Emergency (ER) | payer OTHER, SELFPAY ==
--- NOTE | 2020-06-18 22:22 | ECG_ITS ---
Test Reason : CHEST PAIN Blood Pressure : / mmHG Vent. Rate : 056 BPM Atrial Rate : 056 BPM P-R Int : 160 ms QRS Dur : 084 ms QT Int : 384 ms P-R-T Axes : 070 054 051 degrees QTc Int : 370 ms Sinus bradycardia Otherwise normal ECG When compared with ECG of 07-APR-2020 11:01, No significant change was found Referred By: Generic ED Physician Electronically Signed By:TRENT RUVALCABA MD
[2020-06-18 22:56] LABS: MANUAL DIFF FLAG NO
[2020-06-18 22:57] LABS: Basophils Percent Auto 0.6 % (0-2); Eosinophils Absolute Auto 0.4 X10*3/uL (0.0-0.4); Eosinophils Percent Auto 4.9 % (0-4); Hematocrit 41.3 % (42-52); Hemoglobin 13.8 g/dl (14.0-18.0); Imm Gran Abs Auto 0.01 X10*3/uL (0.00-0.03); Imm Gran Pct Auto 0.1 % (0.0-0.4); Lymphocytes Absolute Auto 2.9 X10*3/uL (1.2-4.9); Lymphocytes Percent Auto 40.6 % (20-40); Mean Corpuscular HGB Conc 33.4 g/dl (31.0-36.0); Mean Corpuscular Hemoglobin 29.6 pg (27.0-33.0); Mean Corpuscular Volume 88.4 fL (80-98); Mean Platelet Volume 9.7 fL (9.4-12.4); Monocytes Absolute Auto 0.8 X10*3/uL (0.1-1.2); Monocytes Percent Auto 11.2 % (2-11); Neutrophils Absolute Auto 3.1 X10*3/uL (2.0-8.3); Neutrophils Percent Auto 42.6 % (45-73); Platelet Count 239 X10*3/uL (160-400); Red Blood Count 4.67 X10*6/uL (4.60-5.80); Red Cell Distribution Width 12.3 % (11.0-16.0); White Blood Count 7.2 X10*3/uL (4.8-10.8)
[2020-06-18 23:26] LABS: Alanine Aminotransferase 22 U/L (0-40); Albumin Level 4.4 g/dL (3.5-5.0); Alkaline Phosphatase 76 U/L (39-117); Anion Gap 13 (12-20); Aspartate Amino Transferase 20 U/L (5-37); Bilirubin Total 0.5 mg/dL (0.0-1.0); Blood Urea Nitrogen 13 mg/dL (9-16); Calcium 9.2 mg/dL (8.4-10.2); Carbon Dioxide 30 mmol/L (22-29); Chloride 102 mmol/L (96-108); Estimated Glomerular Filt Rate > 60; Glucose Random 82 mg/dL (60-115); Potassium 4.6 mmol/l (3.3-5.1); Sodium 140 mmol/L (135-145)
[2020-06-18 23:29] LABS: Troponin-I High Sensitivity < 3.5 ng/L (<3.5-35.0)
--- NOTE | 2020-06-19 00:16 | ED_ITS ---
HPI - Chest Pain General Chief Complaint: Chest Pain Stated Complaint: chest pain Time Seen by Provider: 06/19/20 00:15 Source: patient and old records reviewed Mode of arrival: ambulatory Limitations: no limitations History of Present Illness HPI narrative: just saw PCP had LFTs, CRP mildly elevated, CXR done negative on 06/17 here with chest pain x 3 days no real associated symptoms notes his asthma bothers him this time of year, has INH at home complaint: chest pain Pertinent past history: asthma Onset (ago): day(s) (3) Timing of current episode: constant Prior episodes: Yes Onset: during rest Pain location: substernal Pain radiation: none Severity: similar to previous episodes Quality: aching Relieving factors: nothing Exacerbating factors: nothing Treatment prior to arrival: none Related Data Previous Rx's Medication Instructions Recorded omeprazole 20 mg PO DAILY #30 cap 04/07/20 prednisone 40 mg PO DAILY 4 Days #8 tab 06/19/20 Allergies Allergy/AdvReac Type Severity Reaction Status Date / Time No Known Allergies Allergy Verified 06/18/20 22:20 [No Known Allergies*] Review of Systems Review of Systems: Constitutional : No Weight loss, No Fever, No Chills ENT/Mouth : No sore throat, No Rhinorrhea Eyes: No Eye Pain, No Swelling Cardiovascular : pos Chest Pain, no SOB, no Dyspnea on Exertion, No Orthopnea, No Edema, No Palpitations Respiratory : No Cough, No Sputum Gastrointestinal : no Nausea, No Vomiting, No Diarrhea, No abdominal Pain, No Hematochezia, No Melena Genitourinary : No Dysuria, No Urinary Frequency Musculoskeletal : No joint pain, No Myalgias, No Joint Swelling Skin : No Skin Lesions, No rash Neuro : No Weakness, No Numbness, No Dizziness, No Headache Psych : No Anxiety/Panic, No Depression Heme/Lymph: No Bruising, No Lymphadenopathy Endocrine : No Polyuria, No Polydipsia All other systems reviewed and are negative PMFSH Past Medical History Attestation statement: The following information was validated with the patient. Medical History Asthma Social History Social History Smoking Status: Never smoker Advance Directives: No Advance Directives Information Provided: No Physical Exam Vital Signs: Vital Signs: Last Vital Signs Temp 98.1 F 06/19/20 00:28 Pulse 68 06/19/20 00:28 Resp 16 06/19/20 00:28 BP 119/73 06/19/20 00:28 Pulse Ox 100 06/19/20 00:28 Body Mass Index 21.9 Appearance: Alert. Oriented X3. No acute distress. Anxious Eyes: Pupils equal, round and reactive to light. ENT: Pharynx normal. Neck: Normal inspection. Neck supple. CVS: Normal heart rate and rhythm. Pulses normal. Respiratory: No respiratory distress. Breath sounds normal. Abdomen: Soft and nontender. Skin: Skin warm and dry. Normal skin color. Normal skin turgor. Extremities: No lower extremity edema. No calf ttp Neuro: Oriented X 3. No motor deficit. No sensory deficit. MDM - Chest Pain MDM Narrative Medical decision making narrative: 35 yo male with asthma coming in with 3 days of chest pain, PERC negative, no ACS risk factors, EKG and troponin negative, has elevated CRP but no infectious symptoms - has INH at home, will start on prednisone for possible exacerbation of asthma states this happens yearly to him and follow up with PCP Lab Data Result diagrams: 06/18/20 22:41 06/18/20 22:41 Labs: Lab Results 06/18/20 06/18/20 06/18/20 Range/Units 22:41 22:41 22:41 WBC 7.2 (4.8-10.8) X10*3/uL RBC 4.67 (4.60-5.80) X10*6/uL Hgb 13.8 L (14.0-18.0) g/dl Hct 41.3 L (42-52) % MCV 88.4 (80-98) fL MCH 29.6 (27.0-33.0) pg MCHC 33.4 (31.0-36.0) g/dl RDW 12.3 (11.0-16.0) % Plt Count 239 (160-400) X10*3/uL MPV 9.7 (9.4-12.4) fL Immature Gran % (Auto) 0.1 (0.0-0.4) % Neut % (Auto) 42.6 L (45-73) % Lymph % (Auto) 40.6 H (20-40) % [place] % (Auto) 11.2 H (2-11) % Eos % (Auto) 4.9 H (0-4) % Baso % (Auto) 0.6 (0-2) % Lymph # (Auto) 2.9 (1.2-4.9) X10*3/uL [place] # (Auto) 0.8 (0.1-1.2) X10*3/uL Eos # (Auto) 0.4 (0.0-0.4) X10*3/uL Baso # (Auto) 0.0 (0.0-0.2) X10*3/uL Abs Immat Gran (auto) 0.01 (0.00-0.03) X10*3/uL Absolute Neuts (auto) 3.1 (2.0-8.3) X10*3/uL Absolute Nucleated RBC 0.000 (0.0-0.012) X10*3/uL Nucleated RBC % (auto) 0.0 (0.0-0.2) /100WBC Hold Blue Top SEE NOTE Sodium 140 (135-145) mmol/L Potassium 4.6 (3.3-5.1) mmol/l Chloride 102 (96-108) mmol/L Carbon Dioxide 30 H (22-29) mmol/L Anion Gap 13 (12-20) BUN 13 (9-16) mg/dL Creatinine 0.87 (0.5-1.4) mg/dL Estim Creat Clear Calc TNP Estimated GFR > 60 Random Glucose 82 (60-115) mg/dL Calcium 9.2 (8.4-10.2) mg/dL Total Bilirubin 0.5 (0.0-1.0) mg/dL AST 20 (5-37) U/L ALT 22 (0-40) U/L Alkaline Phosphatase 76 (39-117) U/L Troponin I High Sens (<3.5-35.0) ng/L Total Protein 7.0 (6.5-8.0) g/dL Albumin 4.4 (3.5-5.0) g/dL 06/18/20 Range/Units 22:41 WBC (4.8-10.8) X10*3/uL RBC (4.60-5.80) X10*6/uL Hgb (14.0-18.0) g/dl Hct (42-52) % MCV (80-98) fL MCH (27.0-33.0) pg MCHC (31.0-36.0) g/dl RDW (11.0-16.0) % Plt Count (160-400) X10*3/uL MPV (9.4-12.4) fL Immature Gran % (Auto) (0.0-0.4) % Neut % (Auto) (45-73) % Lymph % (Auto) (20-40) % [place] % (Auto) (2-11) % Eos % (Auto) (0-4) % Baso % (Auto) (0-2) % Lymph # (Auto) (1.2-4.9) X10*3/uL [place] # (Auto) (0.1-1.2) X10*3/uL Eos # (Auto) (0.0-0.4) X10*3/uL Baso # (Auto) (0.0-0.2) X10*3/uL Abs Immat Gran (auto) (0.00-0.03) X10*3/uL Absolute Neuts (auto) (2.0-8.3) X10*3/uL Absolute Nucleated RBC (0.0-0.012) X10*3/uL Nucleated RBC % (auto) (0.0-0.2) /100WBC Hold Blue Top Sodium (135-145) mmol/L Potassium (3.3-5.1) mmol/l Chloride (96-108) mmol/L Carbon Dioxide (22-29) mmol/L Anion Gap (12-20) BUN (9-16) mg/dL Creatinine (0.5-1.4) mg/dL Estim Creat Clear Calc Estimated GFR Random Glucose (60-115) mg/dL Calcium (8.4-10.2) mg/dL Total Bilirubin (0.0-1.0) mg/dL AST (5-37) U/L ALT (0-40) U/L Alkaline Phosphatase (39-117) U/L Troponin I High Sens < 3.5 (<3.5-35.0) ng/L Total Protein (6.5-8.0) g/dL Albumin (3.5-5.0) g/dL ECG Data ECG #1: Attestation: I personally reviewed and interpreted this ECG as follows: ECG interpretation date: 06/19/20 ECG interpretation time: 00:33 Interpretation: Rate: 56 Rhythm: sinus bradycardia [place]: normal Normal P waves. Normal SHALONDA. Normal QRS complex. ST T wave : normal no BONILLA qTC: normal prior studies: no acute ischemia The study has been interpreted contemporaneously by me. . Discharge Plan Discharge Clinical Impression: Atypical chest pain, CRP elevated Patient Disposition: Home, Self-Care Instructions: Chest Pain (ED) Additional Instructions: return to ED for any worsening symptoms or concerns Prescriptions: New prednisone 20 mg tablet 40 mg PO DAILY 4 Days Qty: 8 RF: 0 No Action omeprazole 20 mg capsule,delayed release(DR/EC) 20 mg PO DAILY Qty: 30 RF: 0 Referrals: Physician,Unknown [Primary Care Provider] - 2 days (if not better)
[2020-06-19 00:28] VITALS: BP 119/73; PULSE 68; RESP 16; TEMP 36.7; O2SAT 100; BMI 21.9
[2020-06-19] MEDS: predniSONE 20 MG TABLET 40 MG PO (00:40)
== END 2020-06-19 00:48 | disposition home or self-care (01) ==
PROVIDERS: Emergency Provider Emergency Medicine
DX: R07.9 Chest pain, unspecified (principal); R79.82 Elevated C-reactive protein (CRP); J45.909 Unspecified asthma, uncomplicated; Z79.899 Other long term (current) drug therapy
CPT/HCPCS: 36415; 80053; 84484; 85025; 93005; 99283

== ENCOUNTER 2020-07-09 14:57 | Outpatient (REF) | payer OTHER, SELFPAY ==
--- NOTE | 2020-07-09 15:18 | XR_ITS ---
EXAMINATION: XR CHEST CLINICAL INFORMATION: Covid infection COMPARISON: Previous chest x-ray most recent 06/17/2020 TECHNIQUE: 2 views of the chest were obtained. FINDINGS: No significant abnormality is noted involving the heart, lungs, mediastinum, bony thorax or soft tissues. XR/XR chest 2V IMPRESSION: Unremarkable examination.
[2020-07-09 15:47] LABS: MANUAL DIFF FLAG NO
[2020-07-09 15:51] LABS: Basophils Absolute Auto 0.1 X10*3/uL (0.0-0.2); Basophils Percent Auto 0.6 % (0-2); Eosinophils Absolute Auto 0.3 X10*3/uL (0.0-0.4); Eosinophils Percent Auto 3.3 % (0-4); Hematocrit 44.4 % (42-52); Imm Gran Abs Auto 0.03 X10*3/uL (0.00-0.03); Imm Gran Pct Auto 0.4 % (0.0-0.4); Lymphocytes Absolute Auto 2.2 X10*3/uL (1.2-4.9); Lymphocytes Percent Auto 28.1 % (20-40); Mean Corpuscular HGB Conc 33.8 g/dl (31.0-36.0); Mean Corpuscular Hemoglobin 29.6 pg (27.0-33.0); Mean Corpuscular Volume 87.7 fL (80-98); Mean Platelet Volume 9.9 fL (9.4-12.4); Monocytes Absolute Auto 0.6 X10*3/uL (0.1-1.2); Neutrophils Absolute Auto 4.7 X10*3/uL (2.0-8.3); Neutrophils Percent Auto 59.6 % (45-73); Platelet Count 367 X10*3/uL (160-400); Red Blood Count 5.06 X10*6/uL (4.60-5.80); Red Cell Distribution Width 12.8 % (11.0-16.0); White Blood Count 7.8 X10*3/uL (4.8-10.8)
[2020-07-09 16:16] LABS: Alanine Aminotransferase 30 U/L (0-40); Albumin Level 4.6 g/dL (3.5-5.0); Alkaline Phosphatase 100 U/L (39-117); Anion Gap 12 (12-20); Aspartate Amino Transferase 22 U/L (5-37); Bilirubin Total 0.6 mg/dL (0.0-1.0); Blood Urea Nitrogen 8 mg/dL (9-16); Calcium 9.3 mg/dL (8.4-10.2); Carbon Dioxide 30 mmol/L (22-29); Chloride 100 mmol/L (96-108); Estimated Glomerular Filt Rate > 60; Glucose Random 90 mg/dL (60-115); Potassium 3.9 mmol/L (3.3-5.1); Sodium 138 mmol/L (135-145)
[2020-07-09 16:42] LABS: Erythrocyte Sedimentation Rate 4 MM/HR (0-15)
[2020-07-10 08:41] LABS: SARS COV2 IgG Positive (Negative)
== END 2020-07-09 14:58 | disposition home or self-care (01) ==
LOC: HO.XRAY 14:57
PROVIDERS: PCP Internal Medicine; Visit Provider Internal Medicine
DX: U07.1 COVID-19 (principal)
CPT/HCPCS: 36415; 71046; 80053; 85025; 85652; 86140; 86769

== ENCOUNTER 2020-08-31 10:19 | Emergency (ER) | payer OTHER, SELFPAY ==
--- NOTE | ~2020-08-31 | CT_ITS ---
EXAMINATION: CT ABDOMEN AND PELVIS WITHOUT CONTRAST CLINICAL INFORMATION: Left flank pain COMPARISON: 02/02/2020 TECHNIQUE: Multidetector volumetric imaging was performed from the superior aspect of the liver through the pubic symphysis. Sagittal and coronal reformatted images were obtained on the technologist's workstation. This CT examination was performed using dose optimization techniques as appropriate, variously including the following: *Automated exposure control *Adjustment of mA and/or kV according to patient size (this includes techniques or standardized protocols for targeted exams where dose is matched to indication/reason for exam; i.e. extremities or head) *Use of iterative reconstruction technique DLP: 384 mGy-cm FINDINGS: LUNG BASES: The visualized lung bases are unremarkable. LIVER, GALLBLADDER, AND BILIARY TREE: The liver is normal in size, shape, and attenuation. No focal hepatic lesion or biliary ductal dilatation is present. Focal fatty infiltration adjacent to the falciform ligament. Gallbladder unremarkable. PANCREAS: Unremarkable. SPLEEN: Unremarkable. ADRENAL GLANDS: Unremarkable. KIDNEYS AND URETERS: The kidneys are normal in size, shape, and attenuation. No hydronephrosis, hydroureter, or calculi seen. No perinephric stranding. BLADDER: Unremarkable. GASTROINTESTINAL TRACT: The small and large bowel are unremarkable. The appendix is unremarkable. ABDOMINAL WALL: No significant hernia is appreciated. LYMPH NODES: Normal. VASCULAR: Unremarkable. PELVIC VISCERA: Unremarkable. OSSEOUS STRUCTURES: Unremarkable. CT/CT abdomen pelvis wo con IMPRESSION: No significant abnormality.
[2020-08-31 10:42] VITALS: BP 124/73; PULSE 62; RESP 16; TEMP 36.8; O2SAT 99; BMI 21.9
[2020-08-31 12:19] VITALS: BP 109/78; PULSE 64; RESP 17; TEMP 36.8; O2SAT 100
--- NOTE | 2020-08-31 12:28 | ED.GENADULT ---
HPI - General Adult General Chief complaint: General Medical Stated complaint: flank pain Time Seen by Provider: 08/31/20 11:02 History of Present Illness HPI narrative: This 35 years old male presented to the emergency department with a chief complaint of left flank pain. He states that the pain is been going on for 1 year denies any fever, vomiting, diarrhea Onset (ago): year(s) (1) Related Data Previous Rx's Medication Instructions Recorded omeprazole 20 mg PO DAILY #30 cap 04/07/20 prednisone 40 mg PO DAILY 4 Days #8 tab 06/19/20 Allergies Allergy/AdvReac Type Severity Reaction Status Date / Time No Known Allergies Allergy Verified 06/18/20 22:20 [No Known Allergies*] Review of Systems Review of Systems: Yes all other systems are reviewed and are negative Cardiovascular: Cardiovascular: Reports no additional cardiovascular complaints Respiratory: Respiratory: Reports no additional respiratory complaints and Reports no additional respiratory complaints Gastrointestinal: Gastrointestinal: Reports no additional gastrointestinal complaints Neurologic: Reports system reviewed and no additional complaints, except as documented PMFSH Past Medical History Attestation statement: The following information was validated with the patient. Medical History Asthma Social History Social History Alcohol intake: never Smoking Status: Never smoker Use of substances other than those prescribed or required for medical reasons: No Advance Directives: No Advance Directives Information Provided: No Physical Exam Vital Signs: Vital Signs: Last Vital Signs Temp 98.2 F 08/31/20 12:19 Pulse 64 08/31/20 12:19 Resp 17 08/31/20 12:19 BP 109/78 08/31/20 12:19 Pulse Ox 100 08/31/20 12:19 Body Mass Index 21.9 Const: General: cooperative, healthy appearing and comfortable Orientation/consciousness: oriented to person, oriented to place and oriented to time HENMT: Head: Yes normal to inspection, Yes No palpable skull fracture present and Yes normocephalic Eyes: General: appearance normal, both eyes and all related structures Neck: Neck: Yes normal visual inspection Chest: Chest palpation & inspection: normal inspection of the chest Resp: Auscultation: clear to auscultation bilaterally Cardio: Palpation: normal PMI Rate: regular rate Rhythm: regular rhythm GI: Inspection: Yes normal to inspection Percussion: Yes normal to percussion Skin: General skin exam: no rashes or lesions noted and elasticity normal Neuro: General: oriented to person, oriented to place and oriented to time Course Reevaluation(s) Reevaluation #1: The patient wants leave against medical advise he understand the risk CT scan is not back yet Time: 13:49 Medical Decision Making Lab Data Result diagrams: 08/31/20 12:53 08/31/20 12:53 Labs: Lab Results 08/31/20 08/31/20 08/31/20 Range/Units 12:53 12:53 12:53 WBC 7.9 (4.8-10.8) X10*3/uL RBC 4.75 (4.60-5.80) X10*6/uL Hgb 14.0 (14.0-18.0) g/dl Hct 41.8 L (42-52) % MCV 88.0 (80-98) fL MCH 29.5 (27.0-33.0) pg MCHC 33.5 (31.0-36.0) g/dl RDW 12.6 (11.0-16.0) % Plt Count 380 (160-400) X10*3/uL MPV 9.5 (9.4-12.4) fL Immature Gran % (Auto) 0.3 (0.0-0.4) % Neut % (Auto) 58.9 (45-73) % Lymph % (Auto) 30.1 (20-40) % [place] % (Auto) 8.2 (2-11) % Eos % (Auto) 2.1 (0-4) % Baso % (Auto) 0.4 (0-2) % Lymph # (Auto) 2.4 (1.2-4.9) X10*3/uL [place] # (Auto) 0.7 (0.1-1.2) X10*3/uL Eos # (Auto) 0.2 (0.0-0.4) X10*3/uL Baso # (Auto) 0.0 (0.0-0.2) X10*3/uL Abs Immat Gran (auto) 0.02 (0.00-0.03) X10*3/uL Absolute Neuts (auto) 4.7 (2.0-8.3) X10*3/uL Absolute Nucleated RBC 0.000 (0.0-0.012) X10*3/uL Nucleated RBC % (auto) 0.0 (0.0-0.2) /100WBC Sodium 139 (135-145) mmol/L Potassium 4.0 (3.3-5.1) mmol/L Chloride 102 (96-108) mmol/L Carbon Dioxide 28 (22-29) mmol/L Anion Gap 13 (12-20) BUN 6 L (9-16) mg/dL Creatinine 0.68 (0.5-1.4) mg/dL Estim Creat Clear Calc 133.5 Estimated GFR > 60 Random Glucose 84 (60-115) mg/dL Calcium 8.8 (8.4-10.2) mg/dL Total Bilirubin 0.3 (0.0-1.0) mg/dL AST 22 (5-37) U/L ALT 18 (0-40) U/L Alkaline Phosphatase 93 (39-117) U/L Total Protein 7.1 (6.5-8.0) g/dL Albumin 4.3 (3.5-5.0) g/dL Lipase 25 (8-78) U/L Urine Color YELLOW Urine Appearance CLEAR Urine pH 7.0 (5.0-8.0) Ur Specific [place] 1.015 (1.005-1.025) Urine Protein NEG (NEG-TRACE) MG/DL Urine Glucose (UA) NEG (NEG) MG/DL Urine Ketones NEG (NEG) MG/DL Urine Blood NEG (NEG) Urine Nitrite NEG (NEG) Ur Leukocyte Esterase NEG (NEG) Urine RBC 0 (0) /HPF Urine WBC 0 (0-4) /HPF Ur Squamous Epith Cells NONE /LPF Urine Bacteria NONE /LPF Discharge Plan Discharge Clinical Impression: Chronic flank pain Patient Disposition: Left Against Medical Advice Prescriptions: No Action omeprazole 20 mg capsule,delayed release(DR/EC) 20 mg PO DAILY Qty: 30 RF: 0 prednisone 20 mg tablet 40 mg PO DAILY 4 Days Qty: 8 RF: 0 Interventions: ED Discharge Assessment Last Done: 08/31/20 13:42 Discharge Date/Time: 08/31/20 13:48
[2020-08-31 13:04] LABS: MANUAL DIFF FLAG NO
[2020-08-31 13:13] LABS: Basophils Percent Auto 0.4 % (0-2); Eosinophils Absolute Auto 0.2 X10*3/uL (0.0-0.4); Eosinophils Percent Auto 2.1 % (0-4); Hematocrit 41.8 % (42-52); Imm Gran Abs Auto 0.02 X10*3/uL (0.00-0.03); Imm Gran Pct Auto 0.3 % (0.0-0.4); Lymphocytes Absolute Auto 2.4 X10*3/uL (1.2-4.9); Lymphocytes Percent Auto 30.1 % (20-40); Mean Corpuscular HGB Conc 33.5 g/dl (31.0-36.0); Mean Corpuscular Hemoglobin 29.5 pg (27.0-33.0); Mean Platelet Volume 9.5 fL (9.4-12.4); Monocytes Absolute Auto 0.7 X10*3/uL (0.1-1.2); Monocytes Percent Auto 8.2 % (2-11); Neutrophils Absolute Auto 4.7 X10*3/uL (2.0-8.3); Neutrophils Percent Auto 58.9 % (45-73); Platelet Count 380 X10*3/uL (160-400); Red Blood Count 4.75 X10*6/uL (4.60-5.80); Red Cell Distribution Width 12.6 % (11.0-16.0); White Blood Count 7.9 X10*3/uL (4.8-10.8)
--- NOTE | 2020-08-31 13:23 | PC.NURSE ---
patient a&ox3, ambulated independently to bathroom- obtained urine, iv inserted, labs drawn, pt c/o 11/13 lt flank pain nonradiating, pt awaiting ct scan, vss, will continue to monitor.
[2020-08-31 13:39] LABS: Alanine Aminotransferase 18 U/L (0-40); Albumin Level 4.3 g/dL (3.5-5.0); Alkaline Phosphatase 93 U/L (39-117); Anion Gap 13 (12-20); Aspartate Amino Transferase 22 U/L (5-37); Bilirubin Total 0.3 mg/dL (0.0-1.0); Blood Urea Nitrogen 6 mg/dL (9-16); Calcium 8.8 mg/dL (8.4-10.2); Carbon Dioxide 28 mmol/L (22-29); Chloride 102 mmol/L (96-108); Creatinine Clr Calc Pharmacy 133.5; Estimated Glomerular Filt Rate > 60; Glucose Random 84 mg/dL (60-115); Lipase 25 U/L (8-78); Sodium 139 mmol/L (135-145); Total Protein 7.1 g/dL (6.5-8.0)
--- NOTE | 2020-08-31 13:40 | PC.NURSE ---
patient left ama, provider notified, patient stated he had an emergency and needed to leave right away, iv removed and patient left without discharge papers.
[2020-08-31 13:45] LABS: Glucose Urine UA NEG (NEG); Leukocyte Esterase Urine NEG (NEG); Nitrite Urine NEG (NEG); Specific Gravity - Urine 1.015 (1.005-1.025); Urine Blood NEG (NEG); Urine Ketones NEG (NEG); Urine Protein NEG (NEG-TRACE)
[2020-08-31 13:46] LABS: Appearance Urine CLEAR; Color Urine YELLOW
[2020-08-31 14:12] LABS: RBC Urine 0 /HPF (0); WBC Urine 0 /HPF (0-4)
== END 2020-08-31 13:48 | disposition left against medical advice (07) ==
PROVIDERS: Emergency Provider Emergency Medicine; PCP Internal Medicine
DX: R10.9 Unspecified abdominal pain (principal); Z79.899 Other long term (current) drug therapy
CPT/HCPCS: 36415; 74176; 80053; 81001; 83690; 85025; 99284

== ENCOUNTER 2020-09-22 13:13 | Outpatient (REF) | payer OTHER, SELFPAY ==
[2020-09-22 14:13] LABS: MANUAL DIFF FLAG NO
[2020-09-22 14:24] LABS: Basophils Absolute Auto 0.1 X10*3/uL (0.0-0.2); Basophils Percent Auto 0.9 % (0-2); Eosinophils Absolute Auto 0.3 X10*3/uL (0.0-0.4); Eosinophils Percent Auto 5.5 % (0-4); Hematocrit 42.9 % (42-52); Hemoglobin 14.1 g/dl (14.0-18.0); Imm Gran Abs Auto 0.01 X10*3/uL (0.00-0.03); Imm Gran Pct Auto 0.2 % (0.0-0.4); Lymphocytes Absolute Auto 1.9 X10*3/uL (1.2-4.9); Lymphocytes Percent Auto 34.1 % (20-40); Mean Corpuscular HGB Conc 32.9 g/dl (31.0-36.0); Mean Corpuscular Volume 88.3 fL (80-98); Mean Platelet Volume 9.8 fL (9.4-12.4); Monocytes Absolute Auto 0.5 X10*3/uL (0.1-1.2); Monocytes Percent Auto 9.1 % (2-11); Neutrophils Absolute Auto 2.8 X10*3/uL (2.0-8.3); Neutrophils Percent Auto 50.2 % (45-73); Platelet Count 271 X10*3/uL (160-400); Red Blood Count 4.86 X10*6/uL (4.60-5.80); Red Cell Distribution Width 12.9 % (11.0-16.0); White Blood Count 5.5 X10*3/uL (4.8-10.8)
[2020-09-22 14:44] LABS: Alanine Aminotransferase 26 U/L (0-40); Albumin Level 4.5 g/dL (3.5-5.0); Alkaline Phosphatase 72 U/L (39-117); Aspartate Amino Transferase 21 U/L (5-37); Bilirubin Direct 0.3 mg/dL (0.0-0.5); Bilirubin Total 0.7 mg/dL (0.0-1.0)
[2020-09-23 14:31] LABS: Hepatitis B Viral DNA Qn - cp 2.55 Log IU/mL (NOT DETECTED); Hepatitis B Viral DNA Qn-IU/mL 358 IU/mL (NOT DETECTED)
== END 2020-09-22 13:14 | disposition home or self-care (01) ==
LOC: HO.LAB 13:13
PROVIDERS: Absent Provider Internal Medicine; PCP Internal Medicine; Visit Provider Internal Medicine Gastroenterology
DX: B19.10 Unspecified viral hepatitis B without hepatic coma (principal)
CPT/HCPCS: 36415; 80076; 85025; 87517

== ENCOUNTER → 2021-02-12 14:37 | Outpatient (BNVA) | payer MEDICAID, SELFPAY | PROVIDERS: PCP Internal Medicine; Visit Provider Surgery | DX: L72.0 Epidermal cyst (principal); Z79.52 Long term (current) use of systemic steroids; Z79.899 Other long term (current) drug therapy | CPT/HCPCS: 99202 ==

== ENCOUNTER 2021-06-04 12:54 | Outpatient (REF) | payer OTHER, SELFPAY | END 2021-06-04 12:55 | disposition home or self-care (01) | LOC: HO.HMGCLDS 12:54 | PROVIDERS: Internal Medicine; Visit Provider Internal Medicine | DX: Z20.822 Contact with and (suspected) exposure to COVID-19 (principal) | CPT/HCPCS: C9803; U0003; U0005 ==

== ENCOUNTER 2021-11-27 09:02 | Emergency (ER) | payer OTHER, SELFPAY ==
[2021-11-27 09:05] VITALS: BP 116/74; PULSE 69; RESP 17; TEMP 36.6; O2SAT 99; BMI 22.2
--- NOTE | 2021-11-27 09:23 | ED_ITS ---
HPI - General Adult General Chief complaint: Back Pain/Injury Stated complaint: back pain Time Seen by Provider: 11/27/21 09:23 Source: patient Mode of arrival: ambulatory Limitations: no limitations History of Present Illness HPI narrative: Patient is a 36 year old male presenting to the emergency department today with back pain. Patient states that yesterday at work, he lifted with his back instead of his legs and now he is having pain that Tylenol has not fixed. Patient denies any dizziness, lightheadedness, abdominal pain, nausea, vomiting, fever, chills, blurry vision, double vision, loss of vision, chest pain, difficulty breathing, shortness of breath, night sweats, pain with urination, increased urinary frequency, increased urinary urgency, blood in his urine or stool, syncope or a near syncopal episode, recent trauma or falls, bowel incontinence, bladder incontinence, bowel retention, bladder retention, or any other complaints at this time. Onset (ago): day(s) (1) Location: back Radiation: non-radiation Severity: mild Severity scale (1-10): 2 Quality: dull Pain Consistency: constant Relieving factors: none Exacerbating factors: none Associated symptoms: denies other symptoms Treatments prior to arrival: other (Tylenol) Related Data Previous Rx's Medication Instructions Recorded omeprazole 20 mg capsule,delayed 20 mg PO DAILY #30 caps 04/07/20 release prednisone 20 mg tablet 40 mg PO DAILY 4 days #8 tabs 06/19/20 cyclobenzaprine 10 mg tablet 10 mg PO TID PRN back pain 7 days 11/27/21 #21 tabs Allergies Allergy/AdvReac Type Severity Reaction Status Date / Time No Known Allergies Allergy Verified 02/12/21 14:43 [No Known Allergies*] Review of Systems Constitutional: Constitutional: Reports no additional constitutional complaints, Denies chills, Denies fever(s) and Denies night sweats Eyes: Eyes: Reports no additional eye complaints, Denies blurry vision, Denies change in vision, Denies diplopia, Denies eye discharge, Denies loss of vision and Denies eye pain ENT: Denies dizziness Cardiovascular: Cardiovascular: Reports no additional cardiovascular complaints, Denies chest pain, Denies lightheadedness, Denies Loss of Consciousness and Denies dyspnea Respiratory: Respiratory: Reports no additional respiratory complaints and Denies dyspnea Gastrointestinal: Gastrointestinal: Reports no additional gastrointestinal complaints, Denies abdominal pain, Denies melena, Denies hematochezia, Denies change in bowel habits and Denies change in stool character Genitourinary: Genitourinary: Reports no additional male genitourinary complaints, Denies hematuria, Denies oliguria, Denies difficulty urinating, Denies dysuria, Denies urinary frequency, Denies urinary hesitancy, Denies urinary incontinence and Denies urinary urgency Musculoskeletal: Musculoskeletal: Reports no additional musculoskeletal complaints, Reports back pain, Denies numbness and Denies tingling Neurologic: Denies dizziness, Denies loss of vision, Denies numbness and Denies tingling Psychiatric: Psychiatric: Reports no additional psychiatric complaints Endocrine: Endocrine: Reports no additional endocrine complaints Hematologic/Lymphatic: Hematologic/Lymphatic: Reports no additional hematologic/lymphatic complaints Allergic/Immunologic: Allergic/Immunologic: Reports no additional allergic/immunologic complaints PMFSH Past Medical History Attestation statement: The following information was validated with the patient. Source: old records reviewed Medical History Asthma Surgical History No significant past surgical history Social History Social History Alcohol intake: never Advance Directives: No Advance Directives Information Provided: Yes Physical Exam ED Vital Signs: Vital Signs - 24 hr 11/27/21 09:05 Temperature 98 F Pulse Rate 69 Respiratory Rate 17 Blood Pressure 116/74 Pulse Oximetry 99 BMI result Body Mass Index 22.2 Const General: cooperative, no acute distress, alert and awake Nutritional Appearance: well nourished Orientation/consciousness: patient oriented x3 Limitations: no limitations [facility] Head: Yes normal to inspection and Yes atraumatic Ears: hearing grossly normal bilaterally and external ears normal General nose exam: Normal external nose present, no nasal discharge noted and no epistaxis Face and sinus: Yes normal facial exam, No abrasion and No laceration Mouth: Normal oral and palatal mucosa present, no drooling and no muffled voice Eyes General: appearance normal, both eyes and all related structures Periorbital: periorbital findings normal Eyelids: Yes eyelids normal Conjunctivae: conjunctivae normal Pupils: Equal, round and reactive pupils present EOM: EOMs intact bilaterally Neck Neck: Yes normal visual inspection, Yes full ROM and Yes no lymphadenopathy Chest Chest palpation & inspection: normal inspection of the chest Resp Effort & Inspection: normal respiratory effort and able to speak in complete sentences Auscultation: clear to auscultation bilaterally Cardio Rate: regular rate Rhythm: regular rhythm GI Inspection: Yes normal to inspection General: Yes no CVA tenderness Back/Spine/Pelvis Back: no CVA tenderness Cervical Spine: normal cervical lordosis and cervical ROM normal Thoracic/Lumbar Spine: thoracic and lumbar spine normal to inspection and thoraco-lumbar ROM normal Pelvis: no pain with anterior-posterior compression Neuro General: patient oriented x3 and moves all extremities Cranial nerves: Yes Equal, round and reactive pupils present Cognition (Neuro): normal cognition Motor exam (neuro): 5/5 motor strength present throughout Sensory Exam: Normal double simultaneous stimulation for sensation Coordination: [id number] test normal Extrem General: Yes normal to inspection, Yes full ROM and Yes capillary refill normal Psych Appearance: grossly normal Mental Status: mental status grossly normal Affect: normal affect Attitude: cooperative Thought process: Normal thought process present Thought content: Normal thought content present Insight: Good insight present (Psych) Medical Decision Making MDM Narrative Medical decision making narrative: Patient is a 36 year old male presenting to the emergency department today with back pain. Patient's physical exam was unremarkable. I explained my physical exam findings to the patient. I answered all questions asked by the patient. Patient received PO Flexeril and refused the IM Toradol that was offered however, he stated the Flexeril helped his pain significantly. I stressed the importance of the patient taking his medication as prescribed. I stressed the importance of the patient following up with his primary care provider. I stressed the importance of the patient returning to the emergency department immediately if his symptoms were to worsen or if he were to develop any dizziness, shortness of breath, difficulty breathing, chest pain, blurry vision, loss of vision, nausea, vomiting, abdominal pain, fever, chills, back pain, or any other complaints. Patient verbalized agreement and understanding with this treatment plan and discharge. Differential Diagnosis Differential Diagnosis: low back pain, mechanical back pain Medical Records Medical records reviewed: Yes I reviewed the patient's medical records. Discharge Plan Discharge Clinical Impression: Strain of lumbar region Patient Disposition: Home, Self-Care Instructions: Back Pain (ED) Additional Instructions: Follow up with your primary care provider. Return to the emergency department immediately if your symptoms worsen or if you develop any dizziness, shortness of breath, difficulty breathing, chest pain, blurry vision, loss of vision, nausea, vomiting, abdominal pain, fever, chills, back pain, or any other complaints. Prescriptions: New cyclobenzaprine 10 mg tablet 10 mg PO TID PRN (Reason: back pain) 7 Days Qty: 21 0RF No Action omeprazole 20 mg capsule,delayed release(DR/EC) 20 mg PO DAILY Qty: 30 0RF prednisone 20 mg tablet 40 mg PO DAILY 4 Days Qty: 8 0RF Referrals: [facility] Family Medicine [Provider Group] (Call to establish and follow up with a primary care provider. If you already have a primary care provider, please follow up with them. ) [facility] Primary Care, [place] [Provider Group] (Call to establish and follow up with a primary care provider. If you already have a primary care provider, please follow up with them. ) [facility] Primary Care,[place] [Provider Group] (Call to establish and follow up with a primary care provider. If you already have a primary care provider, please follow up with them. ) Stand Alone Forms: Work/School Release Interventions: ED Discharge Assessment Last Done: 11/27/21 09:52 Discharge Date/Time: 11/27/21 09:53 Print Language: [place]
[2021-11-27] MEDS: Cyclobenzaprine HCl 5 MG TABLET PO (09:39)
== END 2021-11-27 09:53 | disposition home or self-care (01) ==
PROVIDERS: Emergency Provider Emergency Medicine Emergency Medical Services
DX: M54.50 Low back pain, unspecified (principal); Z79.899 Other long term (current) drug therapy
CPT/HCPCS: 96372; 99283; 99284

== ENCOUNTER 2022-09-14 08:04 | Emergency (ER) | payer OTHER, SELFPAY ==
--- NOTE | 2022-09-14 08:35 | ED.GENADULT ---
HPI - General Adult General Chief complaint: Upper Respiratory Symptoms Stated complaint: Fever/Sore throat Time Seen by Provider: 09/14/22 08:35 Source: patient Mode of arrival: ambulatory Limitations: no limitations History of Present Illness HPI narrative: Patient is a 37 year old assigned male at with no reported medical history presenting to the emergency department today with a sore throat and a fever. Patient states that in the last 24 hours he has developed a sore throat and a fever. Patient states that his recently tested positive for strep throat and he is concerned that he has contracted it. Patient denies any dizziness, lightheadedness, abdominal pain, nausea, vomiting, chills, blurry vision, double vision, loss of vision, chest pain, difficulty breathing, shortness of breath, back pain, night sweats, pain with urination, increased urinary frequency, increased urinary urgency, blood in his urine or stool, syncope or a near syncopal episode, recent trauma or falls, bowel incontinence, bladder incontinence, bowel retention, bladder retention, or any other complaints at this time. Onset (ago): hour(s) Severity: mild Exacerbating factors: none Associated symptoms: fever/chills Treatments prior to arrival: other (tylenol) Related Data Previous Rx's Medication Instructions Recorded omeprazole 20 mg capsule,delayed 20 mg PO DAILY #30 caps 04/07/20 release prednisone 20 mg tablet 40 mg PO DAILY 4 days #8 tabs 06/19/20 cyclobenzaprine 10 mg tablet 10 mg PO TID PRN back pain 7 days 11/27/21 #21 tabs penicillin V potassium 500 mg 500 mg PO BID 10 days #20 tabs 09/14/22 tablet prednisone 20 mg tablet 20 mg PO DAILY 7 days #7 tabs 09/14/22 Allergies Allergy/AdvReac Type Severity Reaction Status Date / Time No Known Allergies Allergy Verified 02/12/21 14:43 [No Known Allergies*] Review of Systems Constitutional: Constitutional: Reports no additional constitutional complaints, Denies chills, Reports fever(s) and Denies night sweats Eyes: Eyes: Reports no additional eye complaints, Denies blurry vision, Denies change in vision, Denies diplopia, Denies eye discharge, Denies loss of vision and Denies eye pain ENT: Denies dizziness and Reports sore throat Cardiovascular: Cardiovascular: Reports no additional cardiovascular complaints, Denies chest pain, Denies lightheadedness, Denies Loss of Consciousness and Denies dyspnea Respiratory: Respiratory: Reports no additional respiratory complaints and Denies dyspnea Gastrointestinal: Gastrointestinal: Reports no additional gastrointestinal complaints, Denies abdominal pain, Denies melena, Denies hematochezia, Denies change in bowel habits and Denies change in stool character Genitourinary: Genitourinary: Reports no additional male genitourinary complaints, Denies hematuria, Denies oliguria, Denies difficulty urinating, Denies dysuria, Denies urinary frequency, Denies urinary hesitancy, Denies urinary incontinence and Denies urinary urgency Musculoskeletal: Musculoskeletal: Reports no additional musculoskeletal complaints, Denies numbness and Denies tingling Neurologic: Denies dizziness, Denies loss of vision, Denies numbness and Denies tingling Psychiatric: Psychiatric: Reports no additional psychiatric complaints Endocrine: Endocrine: Reports no additional endocrine complaints Hematologic/Lymphatic: Hematologic/Lymphatic: Reports no additional hematologic/lymphatic complaints Allergic/Immunologic: Allergic/Immunologic: Reports no additional allergic/immunologic complaints PMFSH Past Medical History Attestation statement: The following information was validated with the patient. Source: old records reviewed and nursing notes reviewed Medical History Asthma Epidermal inclusion cyst Surgical History No significant past surgical history Social History Social History Alcohol intake: never Advance Directives: No Advance Directives Information Provided: Yes Physical Exam ED Vital Signs: Vital Signs - 24 hr 09/14/22 08:48 Temperature 98.9 F Pulse Rate 93 Respiratory Rate 16 Blood Pressure 117/75 Pulse Oximetry 98 Oxygen Delivery Method Room Air BMI result Body Mass Index 21.9 Const General: cooperative, no acute distress, alert and awake Nutritional Appearance: well nourished Orientation/consciousness: patient oriented x3 Limitations: no limitations HENMT Head: Yes normal to inspection and Yes atraumatic Ears: hearing grossly normal bilaterally and external ears normal General nose exam: Normal external nose present, no nasal discharge noted and no epistaxis Face and sinus: Yes normal facial exam, No abrasion and No laceration Mouth: Normal oral and palatal mucosa present, no drooling and no muffled voice Throat: Yes abnormal tonsil (bilateral erythema and exudates) Eyes General: appearance normal, both eyes and all related structures Periorbital: periorbital findings normal Eyelids: Yes eyelids normal Conjunctivae: conjunctivae normal Pupils: Equal, round and reactive pupils present EOM: EOMs intact bilaterally Neck Neck: Yes normal visual inspection, Yes full ROM and Yes no lymphadenopathy Chest Chest palpation & inspection: normal inspection of the chest Resp Effort & Inspection: normal respiratory effort and able to speak in complete sentences GI Inspection: Yes normal to inspection Neuro General: patient oriented x3 and moves all extremities Cranial nerves: Yes Equal, round and reactive pupils present Cognition (Neuro): normal cognition Motor exam (neuro): 5/5 motor strength present throughout Sensory Exam: Normal double simultaneous stimulation for sensation Coordination: [id number] test normal Extrem General: Yes normal to inspection, Yes full ROM and Yes capillary refill normal Psych Appearance: grossly normal Mental Status: mental status grossly normal Affect: normal affect Attitude: cooperative Thought process: Normal thought process present Thought content: Normal thought content present Insight: Good insight present (Psych) Medical Decision Making Medical Decision Making [facility] Narrative: Patient is a 37 year old assigned male at with no reported medical history presenting to the emergency department today with sore throat and fever. Patient's physical exam showed bilateral tonsillary exudates and erythema. Patient's COVID/Influenza/RSV swabs were negative however, given the patient's symptoms and recent exposure to confirmed strep positive individual, will treat. I explained my physical exam findings as well as all test results to the patient. I answered all questions asked by the patient. I stressed the importance of the patient taking his medication as prescribed. I stressed the importance of the patient following up with his primary care provider. I stressed the importance of the patient returning to the emergency department immediately if his symptoms were to worsen or if he were to develop any dizziness, shortness of breath, difficulty breathing, chest pain, blurry vision, loss of vision, nausea, vomiting, abdominal pain, fever, chills, back pain, or any other complaints. Patient verbalized agreement and understanding with this treatment plan and discharge. Differential Diagnosis Differential Diagnoses: The differential diagnosis associated with the presentation includes pharyngitis Lab Data [facility] Lab Attestation statement: I reviewed the patient's lab results. Labs: Lab Results 09/14/22 09/14/22 09/14/22 Range/Units 08:51 08:51 08:51 COVID-19 (MIA) Negative (Negative) COVID-19 Clin Com See Note Influenza Type A (BERNADINE) Negative (Negative) Influenza Type B (BERNADINE) Negative (Negative) Influenza A & B Note See Note S. pyogenes GrpA BERNADINE Negative (Negative) Discharge Plan Discharge Clinical Impression: Pharyngitis Patient Disposition: Home, Self-Care Instructions: Pharyngitis (ED) Additional Instructions: Follow up with your primary care provider. Return to the emergency department immediately if your symptoms worsen or if you develop any dizziness, shortness of breath, difficulty breathing, chest pain, blurry vision, loss of vision, nausea, vomiting, abdominal pain, fever, chills, back pain, or any other complaints. Prescriptions: New prednisone 20 mg tablet 20 mg PO DAILY 7 Days Qty: 7 0RF penicillin V potassium 500 mg tablet 500 mg PO BID 10 Days Qty: 20 0RF No Action omeprazole 20 mg capsule,delayed release(DR/EC) 20 mg PO DAILY Qty: 30 0RF prednisone 20 mg tablet 40 mg PO DAILY 4 Days Qty: 8 0RF cyclobenzaprine 10 mg tablet 10 mg PO TID PRN (Reason: back pain) 7 Days Qty: 21 0RF Referrals: Rob Mcnair DO [Primary Care Provider] - Stand Alone Forms: Work/School Release Print Language: Wolof
[2022-09-14 08:48] VITALS: BP 117/75; PULSE 93; RESP 16; TEMP 37.2; O2SAT 98; BMI 21.9
[2022-09-14 09:13] LABS: IDNOW Serial# 08D9AD1C
[2022-09-14 09:14] LABS: Strep A Nucleic Acid Negative (Negative)
[2022-09-14 09:20] LABS: IDNOW Serial# 55D5AD1C; IDNOW Serial# BCCEAD1C; Influenza A Negative (Negative); Influenza B2 Negative (Negative)
[2022-09-14 09:21] LABS: COVID-19 Test Negative (Negative)
== END 2022-09-14 09:45 | disposition home or self-care (01) ==
PROVIDERS: Physician Assistant Medical; Emergency Provider Emergency Medicine; PCP Internal Medicine
DX: J02.9 Acute pharyngitis, unspecified (principal); R50.9 Fever, unspecified; Z20.822 Contact with and (suspected) exposure to COVID-19; Z20.828 Contact with and (suspected) exposure to other viral communicable diseases; Z79.899 Other long term (current) drug therapy
CPT/HCPCS: 87502; 87635; 87651; 99282; 99283

== ENCOUNTER 2023-09-30 11:48 | Outpatient (AMB) | payer OTHER, SELFPAY ==
[2023-09-30 11:49] VITALS: BP 110/68; PULSE 97; TEMP 36.8; O2SAT 97; BMI 22.1
--- NOTE | 2023-09-30 11:49 | AM.OFFWIN_ITS ---
Intake Vital Signs 09/30/23 11:49 Height 5 ft 7 in Weight 141 lb 2 oz BMI 22.1 BP 110/68 Blood Pressure Location Lt brachial Position Sitting Pulse 97 Pulse Source Pulse Oximeter Temp 98.3 F Temp Source Oral Pulse Oximetry (%) 97 Oxygen Delivery Method Room Air Intake Visit Reasons: [employer] Cough, Congestion Intake Note: pt is here today for cough and congestion that started 2 days ago. Patient Tobacco Use Status: Never used Tobacco Allergies Penicillins Allergy (Verified 09/30/23 11:52) Anaphylaxis HPI [employer] Cough, Congestion HPI Details This is a 38 year old male patient who presents today with a 3 day history of nasal/chest congestion, cough, fever. He states his temp was 102 that last two days despite taking Tylenol, and it broke yesterday after taking Ibuprofen. Denies known exposure to sick contacts. Reports vomiting x1, and an upset stomach, however no diarrhea. He has noticed some wheezing and used his Proair inhaler at home several times a day for the last several days. [facility] Medical History Epidermal inclusion cyst Asthma Surgical History No significant past surgical history Social History Alcohol intake: never Patient Tobacco Use Status: Never used Tobacco Review of Systems Const All systems reviewed & are unremarkable except as noted in HPI and below Physical Exam Vital Signs: Last Vital Signs Temp 98.3 F 09/30/23 11:49 Pulse 97 09/30/23 11:49 BP 110/68 09/30/23 11:49 Pulse Ox 97 09/30/23 11:49 Oxygen Delivery Method Room Air 09/30/23 11:49 BMI result Body Mass Index 22.1 Const General: cooperative and no acute distress HEENT Head: Yes normal to inspection Ears: hearing grossly normal bilaterally General nose exam: Normal external nose present Throat: Yes posterior oropharynx normal Neck Neck: Yes no lymphadenopathy Resp Effort & Inspection: normal respiratory effort Auscultation: wheezes expiratory wheezes, inspiratory wheezes and upper bilaterally Cardio Rate: regular rate Rhythm: regular rhythm Skin General skin exam: no rashes or lesions noted Extrem General: Yes capillary refill normal and Yes no clubbing, cyanosis or edema Psych Appearance: grossly normal Mental Status: mental status grossly normal Speech and movement: Normal speech and movement present Office Procedures Nebulizer Treatment Nebulizer Treatment [id number]/MDI RX initial, or Nebulizer Subsequent Treatment Office Meds ipratropium 0.5 mg-albuterol 3 mg (2.5 mg base)/3 mL nebulization soln Performing Provider: HILLARY Rueda Performing Location: [facility] Administered by: Jeff Llanes RN on 09/30/23 12:12 Dose Route Admin Location Dispensed Lot Number Expiration Date NDC [employer] 3 mL inhalation 3 mL [id number] 04/05/25 86068-006-02 [employer] Comments: Assessment & Plan Assessment & Plan (1) Upper respiratory tract infection: Code(s): J06.9 - Acute upper respiratory infection, unspecified Qualifiers: URI type: unspecified viral URI Qualified Code(s): J06.9 - Acute upper respiratory infection, unspecified Plan: Symptoms are consistent with viral URI. Covid/Flu/RSV swab obtained and patient will be notified of results once these are available. He did have some wheezing in b/l upper lobes and was provided a nebulizer treatment today in the office. This significantly reduced wheezing and patient felt improved following treatment. He can continue to use Proair inhaler at home. Patient declined Prednisone - had negative side effects previously to this. I started him on Benzonatate and we reviewed indications and use of this. He can continue to use Tylenol/Motrin at home as needed for symptom management. If he does not improve with time and conservative measures, he can return for evaluation. He agrees to plan. Orders: Orders AMB Nebulizer Treatment Today J06.9 - Acute upper respiratory infection, unspecified SARS-CoV2/FLU/RSV Today J06.9 - Acute upper respiratory infection, unspecified Medications: New benzonatate 100 mg PO BID 7 days PRN 14 caps 0RF cough R05.9 - Cough, unspecified Coding Level of Care Code Est Pt Level 4 (63426) Diagnoses Viral upper respiratory tract infection J06.9 URI type: unspecified viral URI CPT Codes Nebulizer Treatment - Nebulizer Treatment, initial or subsequent: 75888- Nebulizer/MDI RX initial, or Nebulizer Subsequent Treatment ([id number])
== END 2023-09-30 12:34 | disposition home or self-care (01) ==
PROVIDERS: PCP Internal Medicine; Visit Provider Nurse Practitioner Family
DX: J06.9 Acute upper respiratory infection, unspecified (principal)
CPT/HCPCS: 94640; 99204; 99214; J7620

== ENCOUNTER 2023-09-30 12:03 | Outpatient (REF) | payer OTHER, SELFPAY ==
[2023-09-30 15:35] LABS: Influenza A PCR NEGATIVE (Negative); Influenza B PCR NEGATIVE (Negative); Resp Syncy Virus RNA Qual PCR NEGATIVE (Negative); SARS COV2 PCR INHOUSE NEGATIVE (Negative)
== END 2023-09-30 12:04 | disposition home or self-care (01) ==
LOC: HO.LAB 12:03
PROVIDERS: Visit Provider Nurse Practitioner Family
DX: J06.9 Acute upper respiratory infection, unspecified (principal)
CPT/HCPCS: 0241U

== ENCOUNTER 2023-11-04 14:52 | Emergency (ER) | payer SELFPAY ==
--- NOTE | ~2023-11-04 | CT_ITS ---
EXAMINATION: CT ABDOMEN AND PELVIS WITH CONTRAST CLINICAL INFORMATION: Left lower quadrant and epigastric tenderness, nausea and vomiting. COMPARISON: CT abdomen and pelvis dated 08/31/2020. TECHNIQUE: Multidetector volumetric images were obtained from the superior aspect of the liver through the pubic symphysis following administration 85 mL of Omnipaque 350 intravenous contrast. Sagittal and coronal reformatted images were obtained on the technologist's workstation. Oral contrast: No This CT examination was performed using dose optimization techniques as appropriate, variously including the following: *Automated exposure control *Adjustment of mA and/or kV according to patient size (this includes techniques or standardized protocols for targeted exams where dose is matched to indication/reason for exam; i.e. extremities or head) *Use of iterative reconstruction technique DLP: 362 mGy-cm FINDINGS: LUNG BASES: The visualized lung bases are unremarkable. LIVER, GALLBLADDER, AND BILIARY TREE: The liver is normal in size, shape, and attenuation. No focal hepatic lesion or biliary ductal dilatation is present. The gallbladder is unremarkable with no evidence of radiopaque gallstones, gallbladder wall thickening, or obvious pericholecystic inflammatory changes. PANCREAS: Unremarkable. SPLEEN: Unremarkable. ADRENAL GLANDS: Unremarkable. KIDNEYS AND URETERS: The kidneys are normal in size, shape, and attenuation. No hydronephrosis, hydroureter, or calculi seen. No perinephric stranding. BLADDER: Unremarkable. GASTROINTESTINAL TRACT: The small and large bowel are unremarkable. The appendix is unremarkable. ABDOMINAL WALL: No significant hernia is appreciated. LYMPH NODES: Normal. VASCULAR: Unremarkable. PELVIC VISCERA: The prostate and seminal vesicles are unremarkable. OSSEOUS STRUCTURES: There is a Schmorl's node of the S1 upper endplate. No acute or aggressive osseous findings is noted. CT/CT abdomen pelvis w IV con IMPRESSION: No significant abnormality. Fleischner guidelines were followed.
[2023-11-04 14:57] VITALS: BP 113/71; PULSE 68; RESP 16; TEMP 36.4; O2SAT 97; BMI 21.9
--- NOTE | 2023-11-04 14:59 | ED_ITS ---
HPI - Nausea/Vomiting/Diarrhea General Chief complaint: Nausea/Vomiting/Diarrhea Stated complaint: lethargic, Vomiting Time Seen by Provider: 11/04/23 16:49 Source: patient Mode of arrival: ambulatory Limitations: no limitations History of Present Illness ED Provider: Dr. Getachew Lopez HPI Narrative: 38-year-old male with no significant past medical history who presents emergency department for evaluation of abdominal pain, nausea, vomiting, lightheadedness, dizziness and syncope. The patient states that he got up this morning was feeling well. He ate some nuts and was sitting at his computer doing work. He states that he then developed sudden onset of severe abdominal pain. He points to his upper abdomen when asked to localize the pain. He states the pain was a constant, pressure-like pain which was 7-10 at its worst. Patient had subjective fever and chills. He had nausea with several episodes of some vomiting. Patient states after vomiting he felt lightheaded, dizzy and passed out. His who has here in the emergency department states that he face timed her and he did not appear well. She left work, picked him up and brought him to the emergency department for evaluation. He states this is 1st episode of this type of pain. Related Data Previous Rx's ?Medication ?Instructions ?Recorded benzonatate 100 mg capsule 100 mg PO BID PRN cough 7 days #14 09/30/23 caps ondansetron 4 mg disintegrating 4 mg PO Q6-8H PRN nausea and 11/04/23 tablet vomiting #14 tabs Allergies Allergy/AdvReac Type Severity Reaction Status Date / Time Penicillins Allergy Anaphylaxis Verified 11/04/23 14:58 Review of Systems 2 Review of Systems: Yes all other systems are reviewed and are negative [facility] Past Medical History [facility] Narrative: Social history: He denies tobacco, alcohol and drug use Medical History Epidermal inclusion cyst Asthma Surgical History No significant past surgical history Social History Social History Alcohol intake: never Patient Tobacco Use Status: Never used Tobacco Smoked in Last 30 Days: No Use of substances other than those prescribed or required for medical reasons: No Advance Directives: No Advance Directives Information Provided: No Do you have a plan to hurt others: No Plan Physical Exam 2 Vital Signs: Vital Signs: Last Vital Signs Temp 98.0 F 11/04/23 22:24 Pulse 68 11/04/23 22:24 Resp 16 11/04/23 22:24 BP 123/73 11/04/23 22:24 Pulse Ox 100 11/04/23 22:24 O2 Del Method Room Air 11/04/23 22:24 BMI result Body Mass Index 21.9 Vital signs were no Exam: General: Patient is awake, alert, he does appear to be in distress secondary to his abdominal pain Head: Normocephalic, atraumatic EENT: PERRL, Lids normal, sclera normal, conjunctiva normal, nose normal , ears normal, throat without erythema or exudates Neck: Supple, no adenopathy Lung: breath sounds symmetric, no wheezing, rales or rhonchi Chest: symmetric movement, nontender Heart: regular rate and rhythm, normal S1, S2 no murmurs or rubs Abdomen: soft, moderate epigastric tenderness, mild to moderate right upper quadrant and left upper quadrant tenderness, no right lower quadrant tenderness, normoactive bowel sounds, no rebound, no voluntary or involuntary guarding Back: no vertebral tenderness, no CVAT Extremities: no deformities, moves all extremities symmetrically Neuro: Awake, alert, oriented, normal speech, cranial nerves intact, moves all extremities symmetrically Psych: Pleasant, cooperative Course Course Course Narrative: This is a Rapid Medical Examination (RME) performed by Juan Simpson PA-C in triage. Full HPI, ROS, assessment and treatment plan per primary provider in the Main ED. 38 yo male w/ no significant pmhx here for eval of N/V/D which began today. endorses feeling generally week. admits to feeling fine this morning. reports 3 episodes of vomiting today. no known sick contacts. denies hx of DM. or hypoglycemia. perrla. no pronator dift. no slurred speech or facial droop. abd soft, ND/NT, no rebound or guarding. unable to asses ambulation d/t weakness. placed in wheelchair. Plan: labs, POC Medications Administered Discontinued Medications Generic Name Dose Route Start Last Admin Trade Name Freq PRN Reason Stop Dose Admin Diatrizoate Meglum/Diatrizoate Sod 30 ml 11/04/23 19:19 11/04/23 19:20 Diatrizoate Meglumine, Sodium 30 Ml Solution PO 11/04/23 19:20 30 ml ONCE ONE Administration Sodium Chloride 1,000 mls @ 999 mls/hr 11/04/23 17:13 11/04/23 19:01 Ns IV 11/04/23 18:13 Infused .Q1H1M STA Infusion Iohexol 85 ml 11/04/23 19:20 11/04/23 19:21 Iohexol 350 Mg/Ml 100 Ml Infus..Btl IV 11/04/23 19:21 85 ml ONCE ONE Administration Ketorolac Tromethamine 15 mg 11/04/23 17:13 11/04/23 17:27 Ketorolac Tromethamine 15 Mg/Ml Vial IVPUSH 11/04/23 17:14 15 mg ONCE STA Administration Ondansetron HCl 4 mg 11/04/23 17:13 11/04/23 17:27 Ondansetron Hcl 4 Mg/2 Ml Vial IVPUSH 11/04/23 17:14 4 mg ONCE ONE Administration Medical Decision Making Medical Decision Making MDM Narrative: 38-year-old male who presents emergency department for evaluation of upper abdominal pain associated with nausea vomiting and syncopal episode. Patient's vital signs were normal. Physical examination did reveal upper abdominal tenderness with increased tenderness in the epigastric area. Patient's vital signs were normal. Physical examination did reveal moderate epigastric tenderness as well as mild to moderate right upper quadrant left upper quadrant tenderness. Differential diagnosis: ?Includes but is not limited to gastritis, cholecystitis, pancreatitis, appendicitis, vasovagal syncope secondary to nausea vomiting and pain, electrolyte abnormalities, anemia Following evaluation was ordered: CBC, CMP, lipase, magnesium, COVID-19, influenza, RSV, CT scan of the abdomen pelvis with IV and oral contrast Patient was initially treated with the following: Toradol 15 mg IV, Zofran 4 mg IV and normal saline x1 L Course: My interpretation patient's laboratory evaluation is as follows: WBC elevated 14,200. CMP was normal. COVID-19, influenza and RSV were negative. Lipase was normal. CT scan of the abdomen pelvis with oral and IV contrast did not reveal a clear cause for the patient's pain. Patient's pain is most likely consistent with gastritis given his increased tenderness in his epigastric area, his nausea, vomiting and pain triggered a vasovagal event. I did discuss this with the patient. The patient was given printed and verbal instructions and discharged home. Admission/Observation Consideration of admission/observation: Escalation of care including admission/observation considered Lab Data MDM Lab Attestation statement: I reviewed the patient's lab results. 11/04/23 15:34 11/04/23 15:34 Labs: Lab Results 11/04/23 Range/Units 15:34 WBC 14.2 H (4.8-10.8) X10*3/uL RBC 5.12 (4.60-5.80) X10*6/uL Hgb 14.6 (14.0-18.0) g/dl Hct 43.1 (42.0-52.0) % MCV 84.2 (80.0-98.0) fL MCH 28.5 (27.0-33.0) pg MCHC 33.9 (31.0-36.0) g/dl RDW 13.0 (11.0-16.0) % Plt Count 274 (160-400) X10*3/uL MPV 9.1 L (9.4-12.4) fL Immature Gran % (Auto) 0.4 (0.0-0.4) % Neut % (Auto) 85.5 H (45-73) % Lymph % (Auto) 8.5 L (20-40) % Arthur % (Auto) 4.6 (2-11) % Eos % (Auto) 0.6 (0-4) % Baso % (Auto) 0.4 (0-2) % Lymph # (Auto) 1.2 (1.2-4.9) X10*3/uL Arthur # (Auto) 0.7 (0.1-1.2) X10*3/uL Eos # (Auto) 0.1 (0.0-0.4) X10*3/uL Baso # (Auto) 0.1 (0.0-0.2) X10*3/uL Abs Immat Gran (auto) 0.06 H (0.00-0.03) X10*3/uL Absolute Neuts (auto) 12.1 H (2.0-8.3) x10*3/uL Absolute Nucleated RBC 0.000 (0.0-0.012) X10*3/uL Nucleated RBC % (auto) 0.0 (0.0-0.2) /100WBC Sodium 138 (135-145) mmol/L Potassium 3.9 (3.3-5.1) mmol/L Chloride 105 (96-108) mmol/L Carbon Dioxide 26 (22-29) mmol/L Anion Gap 11 L (12-20) BUN 14 (9-16) mg/dL Creatinine 0.78 (0.5-1.4) mg/dL Estim Creat Clear Calc 113.0 Estimated GFR > 60 Random Glucose 112 (60-115) mg/dL Calcium 9.6 D (8.4-10.2) mg/dL Magnesium 1.9 (1.6-2.6) mg/dL Total Bilirubin 0.5 (0.0-1.0) mg/dL AST 24 (5-37) U/L ALT 18 (0-40) U/L Alkaline Phosphatase 79 (39-117) U/L Total Protein 7.3 (6.5-8.0) g/dL Albumin 4.4 (3.5-5.0) g/dL Lipase 10 (8-78) U/L Influenza Type A (PCR) NEGATIVE (Negative) Influenza Type B (PCR) NEGATIVE (Negative) RSV RNA Qual (PCR) NEGATIVE (Negative) SARS-CoV-2 RNA (RT-PCR) NEGATIVE (Negative) Radiology Impression Discussion of test interpretation with radiology: I have reviewed the radiologist's reading. Radiologist Impression: CT abdomen pelvis w IV con IMPRESSION: No significant abnormality. Fleischner guidelines were followed. Dictated By: Andi Georges MD Independent Historian Clinical information obtained from an independent historian. History obtained from or confirmed by: Spouse Prescription Management I considered prescription management with: Other (Antiemetics) Discharge Plan Discharge Clinical Impression: Abdominal pain, Vasovagal syncope, Nausea & vomiting Patient Disposition: Home, Self-Care Additional Instructions: Your blood work was unremarkable [place] [id number]. Your COVID-19, influenza and RSV were negative. The CT scan of your abdomen pelvis was unremarkable. Radiologist did note possible disc disease at L4-S1 but this is not uncommon and does not mean that your going to have back pain in the future. At this time I do not have a clear cause for your pain, as possible you may have had inflammation in your stomach (gastritis) from something that you 8. Take Zofran ODT 4 mg pills, 1 pill dissolved in your mouth every 8 hours as needed for nausea and vomiting. Follow-up with your doctor in 2 days. Please return to the emergency department if your symptoms get worse or if you develop any symptoms that are concerning to you. Prescriptions: New ondansetron 4 mg tablet,disintegrating 4 mg PO Q6-8H PRN (Reason: nausea and vomiting) Qty: 14 0RF No Action benzonatate 100 mg capsule 100 mg PO BID PRN (Reason: cough) 7 Days Qty: 14 0RF Interventions: ED Discharge Assessment Last Done: 11/04/23 22:24 Discharge Date/Time: 11/04/23 22:25 Print Language: Czech
[2023-11-04 15:37] LABS: MANUAL DIFF FLAG NO
[2023-11-04 15:39] LABS: Basophils Absolute Auto 0.1 X10*3/uL (0.0-0.2); Basophils Percent Auto 0.4 % (0-2); Eosinophils Absolute Auto 0.1 X10*3/uL (0.0-0.4); Eosinophils Percent Auto 0.6 % (0-4); Hematocrit 43.1 % (42.0-52.0); Hemoglobin 14.6 g/dl (14.0-18.0); Imm Gran Abs Auto 0.06 X10*3/uL (0.00-0.03); Imm Gran Pct Auto 0.4 % (0.0-0.4); Lymphocytes Absolute Auto 1.2 X10*3/uL (1.2-4.9); Lymphocytes Percent Auto 8.5 % (20-40); Mean Corpuscular HGB Conc 33.9 g/dl (31.0-36.0); Mean Corpuscular Hemoglobin 28.5 pg (27.0-33.0); Mean Corpuscular Volume 84.2 fL (80.0-98.0); Mean Platelet Volume 9.1 fL (9.4-12.4); Monocytes Absolute Auto 0.7 X10*3/uL (0.1-1.2); Monocytes Percent Auto 4.6 % (2-11); Neutrophils Absolute Auto 12.1 x10*3/uL (2.0-8.3); Neutrophils Percent Auto 85.5 % (45-73); Platelet Count 274 X10*3/uL (160-400); Red Blood Count 5.12 X10*6/uL (4.60-5.80); White Blood Count 14.2 X10*3/uL (4.8-10.8)
[2023-11-04 15:54] LABS: Alanine Aminotransferase 18 U/L (0-40); Albumin Level 4.4 g/dL (3.5-5.0); Alkaline Phosphatase 79 U/L (39-117); Anion Gap 11 (12-20); Aspartate Amino Transferase 24 U/L (5-37); Bilirubin Total 0.5 mg/dL (0.0-1.0); Blood Urea Nitrogen 14 mg/dL (9-16); Calcium 9.6 mg/dL (8.4-10.2); Carbon Dioxide 26 mmol/L (22-29); Chloride 105 mmol/L (96-108); Estimated Glomerular Filt Rate > 60; Glucose Random 112 mg/dL (60-115); Lipase 10 U/L (8-78); Magnesium 1.9 mg/dL (1.6-2.6); Potassium 3.9 mmol/L (3.3-5.1); Sodium 138 mmol/L (135-145); Total Protein 7.3 g/dL (6.5-8.0)
[2023-11-04 16:16] LABS: Influenza A PCR NEGATIVE (Negative); Influenza B PCR NEGATIVE (Negative); Resp Syncy Virus RNA Qual PCR NEGATIVE (Negative); SARS COV2 PCR INHOUSE NEGATIVE (Negative)
[2023-11-04 16:55] VITALS: BP 104/67; PULSE 69; RESP 17; TEMP 36.4; O2SAT 99
[2023-11-04] MEDS: Ketorolac Tromethamine 15 MG/ML VIAL IVPUSH (17:27)
[2023-11-04] MEDS: ondansetron HCL 4 MG/2 ML VIAL IVPUSH (17:27)
[2023-11-04] MEDS: 0.9 % Sodium Chloride 1,000 ML 999 ML IV (17:27)
--- NOTE | 2023-11-04 19:01 | PC.NURSE ---
Assumed care of pt. Pt sitting on stretcher, no acute distress at this time. IVF completed, pt denies pain at this time. Pending CT with contrast.
[2023-11-04 19:13] VITALS: BP 113/75; PULSE 63; RESP 16; TEMP 36.5; O2SAT 100
[2023-11-04] MEDS: Diatrizoate Meglumine, Sodium 30 ML SOLUTION PO (19:20)
[2023-11-04] MEDS: iohexoL 350 MG/ML 100 ML INFUS..BTL 85 ML IV (19:21)
[2023-11-04 22:24] VITALS: BP 123/73; PULSE 68; RESP 16; TEMP 36.7; O2SAT 100
== END 2023-11-04 22:25 | disposition home or self-care (01) ==
PROVIDERS: Physician Assistant Medical; Emergency Provider Emergency Medicine Emergency Medical Services; PCP Internal Medicine
DX: R11.2 Nausea with vomiting, unspecified (principal); R10.10 Upper abdominal pain, unspecified; R55 Syncope and collapse; Z03.818 Encounter for observation for suspected exposure to other biological agents ruled out
CPT/HCPCS: 0241U; 74177; 80053; 83690; 83735; 85025; 96361; 96374; 96375; 99284; 99285; J1885; J2405; Q9967

== ENCOUNTER 2024-07-16 13:49 | Outpatient (AMB) | payer OTHER, SELFPAY ==
[2024-07-16 13:55] VITALS: BP 116/78; PULSE 69; TEMP 36.4; O2SAT 93; BMI 23.4
--- NOTE | 2024-07-16 13:55 | A.OFFPC_ITS ---
Vital Signs 07/16/24 13:55 Height 5 ft 5.25 in Weight 142 lb BMI 23.4 BP 116/78 Blood Pressure Location Lt brachial Pulse 69 Pulse Source Pulse Oximeter Temp 97.5 F Pulse Oximetry (%) 93 Intake Visit Reasons: physical Allergies Penicillins Allergy (Verified 07/16/24 14:17) Anaphylaxis Medication List - Last Reconciled 07/16/24 by Ajay Resendiz MD No Known Home Meds HPI physical HPI Details 39-year-old male presents to the office requesting an annual physical. In addition patient is complaining of heaviness in his head. A few months back, patient had abdominal pain and nausea and was seen in the emergency room. Abdominal CT scan and blood work was unremarkable. He was discharged home on nausea medication and PPI. Patient reports that since then he is not feeling completely normal. He feels that he has some heaviness in his head. No double vision. Able to function and do all activities of daily living. Patient exercises regularly and follows a healthy diet. [facility] Medical History Epidermal inclusion cyst Asthma Surgical History No significant past surgical history Social History Alcohol intake: never Patient Tobacco Use Status: Never used Tobacco Physical exam (Primary Care) Vital Signs: Last Vital Signs Temp 97.5 F 07/16/24 13:55 Pulse 69 07/16/24 13:55 BP 116/78 07/16/24 13:55 Pulse Ox 93 07/16/24 13:55 BMI result Body Mass Index 23.4 Tobacco/Smoking Status: Tobacco use Status Patient Tobacco Use Status Never used Tobacco 07/16/24 13:56 Const General: cooperative and healthy appearing Nutritional Appearance: well nourished Orientation/consciousness: patient oriented x3 Limitations: no limitations HENMT Head: Yes normal to inspection Eyes General: appearance normal, both eyes and all related structures Neck Neck: Yes normal visual inspection Chest Chest palpation & inspection: normal palpation of entire chest wall Resp Effort & Inspection: normal respiratory effort Neuro General: patient oriented x3 Coding Level of Care Code New Pt Level 3 (92724) New Pt Prev Care 40-64y(26690) Diagnoses Headache R51.9 Annual physical exam Z00.00 Assessment & Plan Assessment & Plan (1) Headache: Code(s): R51.9 - Headache, unspecified Plan: CT Scan of the head without contrast ordered. Will call with results. (2) Annual physical exam: Code(s): Z00.00 - Encounter for general adult medical examination without abnormal findings Plan: Blood work ordered. Will call with results.
--- OUTSIDE RECORDS SUMMARY | 2024-07-16 14:56 | XMS_ITS | Patient Health Record ---
Author Organization Rob Mcnair DO, FAC Address [address], [place] [id number] Care Team Providers Care Ticket Taker Name Role Phone Rob Mcnair Primary Care Provider ALLERGIES No Known Allergies RESULTS Component Value Reference Range Notes Complete Blood Count Auto Di ff Reviewed date:11/05/2023 03:38:31 PM Interpretation:Abnormal Performing Lab:[facility], [address] [place] [phone] Notes/Report: White Blood Count 14.2 4.8-10.8 X10*3/uL Red Blood Count 5.12 4.60-5.80 X10*6/uL Hemoglobin 14.6 14.0-18.0 g/dl Hematocrit 43.1 42.0-52.0 % Mean Corpuscular Volume 84.2 80.0-98.0 fL Mean Corpuscular Hemoglobin 28.5 27.0-33.0 pg Mean Corpuscular HGB Conc 33.9 31.0-36.0 g/dl Red Cell Distribution Width 13.0 11.0-16.0 % Platelet Count 274 160-400 X10*3/uL Mean Platelet Volume 9.1 9.4-12.4 fL Neutrophils Percent Auto 85.5 45-73 % Imm Gran Pct Auto 0.4 0.0-0.4 % Lymphocytes Percent Auto 8.5 20-40 % Monocytes Percent Auto 4.6 2-11 % Eosinophils Percent Auto 0.6 0-4 % Basophils Percent Auto 0.4 0-2 % NRBC Pct Auto 0.0 0.0-0.2 /100WBC Neutrophils Absolute Auto 12.1 2.0-8.3 x10*3/u L Imm Gran Abs Auto 0.06 0.00-0.03 X10*3/uL Lymphocytes Absolute Auto 1.2 1.2-4.9 X10*3/u L Monocytes Absolute Auto 0.7 0.1-1.2 X10*3/uL Eosinophils Absolute Auto 0.1 0.0-0.4 X10*3/u L Basophils Absolute Auto 0.1 0.0-0.2 X10*3/uL NRBC Abs Auto 0.000 0.0-0.012 X10*3/uL Comprehensive Met. Panel Reviewed date:11/05/2023 03:38:31 PM Interpretation:Normal Performing Lab:[facility], [address] [place] [phone] Notes/Report: Sodium 138 135-145 mmol/L Potassium 3.9 3.3-5.1 mmol/L Chloride 105 96-108 mmol/L Carbon Dioxide 26 22-29 mmol/L Anion Gap 11 12-20 Blood Urea Nitrogen 14 9-16 mg/dL Creatinine 0.78 0.5-1.4 mg/dL Creatinine Clr Calc Pharmacy 113.0 eGFR (calculated from the MDRD study equation) and eCrCl (calculated from the Cockcroft-Gault equation) are based on different parameters and may not yield comparable results. If eCrCl result is absurd, please check patient's height/weight. Estimated Glomerular Filt Rate > 60 NOTE: For -Welsh individuals, multiply the result by 1.210. Chronic Kidney Disease: Estimated GFR < 60 mL/min/1.73m2 Severe Kidney Disease: Estimated GFR < 15 mL/min/1.73m2 Glucose Random 112 60-115 mg/dL Calcium 9.6 8.4-10.2 mg/dL Bilirubin Total 0.5 0.0-1.0 mg/dL Aspartate Amino Transferase 24 5-37 U/L Alanine Aminotransferase 18 0-40 U/L Total Protein 7.3 6.5-8.0 g/dL Albumin Level 4.4 3.5-5.0 g/dL Alkaline Phosphatase 79 39-117 U/L Magnesium Reviewed date:11/05/2023 03:38:31 PM Interpretation:Normal Performing Lab:[facility], [address] [place] [phone] Notes/Report: Magnesium 1.9 1.6-2.6 mg/dL Lipase Reviewed date:11/05/2023 03:38:31 PM Interpretation:Normal Performing Lab:[facility], [address] [place] [phone] Notes/Report: Lipase 10 8-78 U/L SARS-CoV2/FLU/RSV Reviewed date:11/05/2023 03:38:31 PM Interpretation:Negative Performing Lab:[facility], [address] [place] [phone] Notes/Report: Influenza A PCR NEGATIVE Negative Influenza B PCR NEGATIVE Negative Resp Syncy Virus RNA Qual PCR NEGATIVE Negative SARS COV2 PCR INHOUSE NEGATIVE Negative All test results must be correlated with clinical findings. Negative results do not preclude SARS-CoV2, influenza A virus, influenza B virus and/or RSV infection and should not be used as the sole basis for treatment or other patient management decisions. Negative results must be combined with clinical observations, patient history, and epidemiological information. This test has not been evaluated for monitoring treatment of infection. This test has been authorized by the FDA under an Emergency Use Authorization (EUA) for use by authorized laboratories. Testing performed on the [employer] GeneXpert utilizing real-time RT-PCR. All SARS CoV2 and positive influenza A/B results are reported to [facility]. CT abdomen pelvis w con Reviewed date:11/05/2023 04:04:15 PM Interpretation:Negative Performing Lab: Notes/Report: [address] [address] [address] Scan Report Signed Patient: Pavan Lott MR#: [id number] : 1985 Acct:[id number] Age/Sex: 38 / M ADM Date: 11/04/23 Loc: .ED Attending Dr: Ordering Physician: Getachew Lopez MD Date of Service: 11/04/23 Procedure(s): CT abdomen pelvis w IV con Accession Number(s): [id number] cc: Rob Mcnair DO; Getachew Lopez MD EXAMINATION: CT ABDOMEN AND PELVIS WITH CONTRAST CLINICAL INFORMATION: Left lower quadrant and epigastric tenderness, nausea and vomiting. COMPARISON: CT abdomen and pelvis dated 08/31/2020. TECHNIQUE: Multidetector volumetric images were obtained from the superior aspect of the liver through the pubic symphysis following administration 85 mL of Omnipaque 350 intravenous contrast. Sagittal and coronal reformatted images were obtained on the technologist's workstation. Oral contrast: No This CT examination was performed using dose optimization techniques as appropriate, variously including the following: *Automated exposure control *Adjustment of mA and/or kV according to patient size (this includes techniques or standardized protocols for targeted exams where dose is matched to indication/reason for exam; i.e. extremities or head) *Use of iterative reconstruction technique DLP: 362 mGy-cm FINDINGS: LUNG BASES: The visualized lung bases are unremarkable. LIVER, GALLBLADDER, AND BILIARY TREE: The liver is normal in size, shape, and attenuation. No focal hepatic lesion or biliary ductal dilatation is present. The gallbladder is unremarkable with no evidence of radiopaque gallstones, gallbladder wall thickening, or obvious pericholecystic inflammatory changes. PANCREAS: Unremarkable. SPLEEN: Unremarkable. ADRENAL GLANDS: Unremarkable. KIDNEYS AND URETERS: The kidneys are normal in size, shape, and attenuation. No hydronephrosis, hydroureter, or calculi seen. No perinephric stranding. BLADDER: Unremarkable. GASTROINTESTINAL TRACT: The small and large bowel are unremarkable. The appendix is unremarkable. ABDOMINAL WALL: No significant hernia is appreciated. LYMPH NODES: Normal. VASCULAR: Unremarkable. PELVIC VISCERA: The prostate and seminal vesicles are unremarkable. OSSEOUS STRUCTURES: There is a Schmorl's node of the S1 upper endplate. No acute or aggressive osseous findings is noted. CT/CT abdomen pelvis w IV con IMPRESSION: No significant abnormality. Fleischner guidelines were followed. Dictated By: Andi Georges MD Signed By: <Electronically signed by Andi Georges MD in OV> 11/04/232156 DD/ 29 TD/TT: Hand Stitcher: BHAVYA REASON FOR REFERRAL No Information MEDICATIONS Medication SIG (Take, Route, Frequency, Duration) Notes Start Date End Date Status ProAir HFA 108 (90 Base) MCG/ACT 1 puff as needed Inhalation every 4 hrs 10/22/2019 Active IMMUNIZATIONS Vaccine Route Administration Date Status Comme nts Influenza Quad IM Intramuscular 06/24/2020 Administered COVID-19 Moderna Vaccine Unknown 10/01/2020 Administere d COVID-19 Moderna Vaccine Unknown 09/02/2020 Administere d Influenza Unknown 04/06/2016 Refused SOCIAL HISTORY Tobacco Use: Social History Observation Description Date Details (start date - stop date) Never Smoker NA - NA Sex Assigned At : Social History Observation Description Sex Assigned At Unknown Tobacco Use/Smoking Question Answer Notes Patient is a nonsmoker Additional Findings: Tobacco Non-User Cu rrent non-smoker, currently using no form of tobacco Alcohol Screen Question Answer Notes Did you have a drink containing alcohol in the p ast year? No Points 0 Interpretation Negative PROBLEMS Problem Type ICD Code Onset Dates Problem Status W/U Status Risk SNOMED Code Notes Problem Mild persistent asthma without complication (J45.30) Active confirmed 276584698 Problem Sciatica of right side (M54.31) Active confirmed 10772923 Problem Xyphoidalgia (R07.89) Active confirmed Chest pain (41446372) Problem Musculoskeletal pain (M79.18) Active confirmed Musculoskeleta l pain (644235413) PLAN OF TREATMENT Pending Test Test Name Order Date TSH (THYROID STIMULATING HORMONE) 2022 VITAMIN D 25-OH TOTAL 07/20/2022 PFT WITH DLCO 06/24/2020 Insurance Providers Payer Name Payer Address Payer Phone Subscriber Number Group Number Insured Name Patient Relationship to Insured Coverage Start Date Coverage End Date [facility] [address] [place] [phone] [id number] Pavan Lott Self - patient is the insured [facility] [address] [place] [id number] Pavan Lott Self - patient is the insured MEDICAL (GENERAL) HISTORY Medical History History ICD Code asthma 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
--- OUTSIDE RECORDS SUMMARY | 2024-07-16 14:56 | XMS_ITS | Clinical Summary ---
Author Organization [facility] Facility Address [address] [place] [id number] Care Team Providers Care Rn Surgery Icu Name Role Phone XuRob gan Primary Care Provider Allergies No known active allergies Medications albuterol HFA (PROVENTIL HFA;VENTOLIN HFA) 108 (90 Base) MCG/ACT inhaler Inhale 1 puff if needed Active Active Problems Problem Noted Date Diagnosed Date Left flank pain 09/04/2020 Family History Medical History Relation Comments Diabetes Father Hypertension Father Relation Status Comments Father Social History Tobacco Use Types Packs/Day Years Used Date Smoking Tobacco: Never Smokeless Tobacco: Never Alcohol Use Standard Drinks/Week Comments Never 0 (1 standard drink = 0.6 oz pur e alcohol) Sex and Gender Information Value Date Recorded Sex Assigned at Not on file Legal Sex Male 4:36 PM EDT Gender Identity Not on file Sexual Orientation Not on file Last Filed Vital Signs Vital Sign Reading Time Taken Comments Blood Pressure 116/70 09/04/2020 3:39 PM EDT Pulse 82 09/04/2020 3:39 PM EDT Temperature - - Respiratory Rate - - Oxygen Saturation - - Inhaled Oxygen Concentration - - Weight 64.7 kg (142 lb 9.6 oz) 09/04/2020 3:39 P M EDT Height - - Body Mass Index - - Plan of Treatment Health Maintenance Due Date Last Done Comments Hepatitis B Vaccine (1 of 3 - 19+ 3-dose series) 2002 Influenza Vaccine (#1) 2024 Pneumococcal Vaccine: Pediat rics (0 to 5 Years) and At-Risk Patients (6 to 64 Years) Aged Out No longer eligi ble based on patient's age to complete this topic [facility] Care Teams Rn Surgery Icu Relationship Specialty Start Date End Date Rob Mcnair DO [address] [place] [address] PCP - General Internal Medicine 09/03/20
--- OUTSIDE RECORDS SUMMARY | 2024-07-16 14:57 | XMS_ITS ---
Author Organization Rob Mcnair DO, FACP Address [address] [place] [phone] Care Team Providers Care Locomotive Mechanic Name Role Phone Rob Mcnair Primary Care Provider Encounters Encounter Location Date Provider Diagnosis Rob Mcnair DO, FACP [address] [place] [phone] 06/22/2023 Rob Mcnair PLAN OF TREATMENT No Information
--- OUTSIDE RECORDS SUMMARY | 2024-07-16 14:57 | XMS_ITS | Patient Health Record ---
Author Organization [facility] Address [address] [place] [address] Care Team Providers Care Passport Support Manager Name Role Phone Vic Galvan MD Primary Care Provider Unavailab le Pito Perez Jr Unavailable Braden Pineda Jacob Unavailable Unavailab le REASON FOR REFERRAL No Information MEDICATIONS Medication SIG (Take, Route, Frequency, Duration) Notes Start Date End Date Status Ibuprofen PRN Active Tylenol PRN Active ProAir HFA 108 (90 Base) MCG/ACT 1 puff as needed Inhalation every 4 hrs Active IMMUNIZATIONS Vaccine Route Administration Date Status Comme nts Influenza Unknown 03/19/2020 Administered Influenza Unknown 08/02/2019 Refused SOCIAL HISTORY Tobacco Use: Social History Observation Description Date Details (start date - stop date) Never Smoker NA - NA Sex Assigned At : Social History Observation Description Sex Assigned At Unknown Tobacco Use/Smoking Question Answer Notes Patient is a nonsmoker Alcohol Screen Question Answer Notes Did you have a drink containing alcohol in the p ast year? No Points 0 Interpretation Negative PROBLEMS Problem Type ICD Code Onset Dates Problem Status W/U Status Risk SNOMED Code Notes Problem Hepatitis B infection without delta agent without hepatic coma, unspecified chronicity (B19.10) Active confirmed 72756101 PLAN OF TREATMENT Pending Test Test Name Order Date LIVER PROFILE 04/23/2020 LIVER PROFILE 08/02/2019 HEPATITIS B E ANTIBODY 04/23/2020 HEPATITIS B E ANTIBODY 08/02/2019 HEPATITIS B E ANTIGEN 04/23/2020 HEPATITIS B E ANTIGEN 08/02/2019 HEPATITIS A ANTIBODY-IGG 04/23/2020 HEPATITIS A ANTIBODY-IGG 08/02/2019 HCV LIVER FIBROSIS, FIBRO TEST 0 HEPATITIS B DNA QN PCR RFLX HBV GENOTYPE 08/02/2019 HEPATITIS B DNA QN PCR RFLX HBV GENOTYPE 04/23/2020 Insurance Providers Payer Name Payer Address Payer Phone Subscriber Number Group Number Insured Name Patient Relationship to Insured Coverage Start Date Coverage End Date MED[employer] [address] [place] [phone] [id number] GERTRUDIS GOFF Self - patient is the insured MEDICAL (GENERAL) HISTORY Medical History History ICD Code Denies AK,DM,CVA,Lung disease,renal dise ase hepatitis B Surgical History Surgery Date(Month/Year)
--- OUTSIDE RECORDS SUMMARY | 2024-07-16 14:57 | XMS_ITS ---
Author Organization Rob Mcnair DO, FACP Address [address] [place] [phone] Care Team Providers Care Telephone Worker Name Role Phone Rob Mcnair Primary Care Provider ALLERGIES No Known Allergies REASON FOR REFERRAL Reason Alopecia Diagnosis 1 Alopecia (L65.9) Referral Organization Rob Joaquin O, FACP Referring Provider First Name Rob Referring Provider Last Name Xu Referring Provider Speciality Internal M edicine Referred Provider Félix Thurman Referred Provider Specialty Dermatology General Notes Drea Chen 023 09:05:37 AM EDT > referral faxed; specialist's office will call patient to schedule appointment., Drea Chen 01/21/2023 10:51:21 AM EDT > original referral to Dr. Mendez, but he is not in-network with patient's insurance. Referral faxed to Dr. Thurman. Letter to patient. Referral Priority Routine Referral Appointment Date 03/10/2023 REASON FOR VISIT 6 month f/u, Follow up asthma MEDICATIONS Medication SIG (Take, Route, Frequency, Duration) Notes Start Date End Date Status ProAir HFA 108 (90 Base) MCG/ACT 1 puff as needed Inhalation every 4 hrs 10/22/2019 Active SOCIAL HISTORY Tobacco Use: Social History Observation [...] ast year? No Points 0 Interpretation Negative VITAL SIGNS BMI 22.09 kg/m2 01/18/2023 Blood pressure systolic 96 mm Hg 01/19/20 23 Blood pressure diastolic 60 mm Hg 023 Height 66.75 in 01/18/2023 Weight 140 lbs 01/18/2023 Encounters Encounter Location Date Provider Diagnosis Rob Mcnair DO, FACP [address] [place] [phone] 01/18/2023 Rob Xu Alopecia L65.9 and Mild persistent asthma without complication J45.30 ASSESSMENTS Encounter Date Diagnosis Assessment Notes Treatment Notes Treatment Clinical Notes 01/18/2023 Alopecia (ICD-10 - L65.9) 01/18/2023 Mild persistent asthma without complication (ICD-10 - J45.30) PLAN OF TREATMENT Medication Medication Name Sig Start Date Stop Date Notes ProAir HFA 108 (90 Base) MCG/ACT 1 puff as needed Inhalation every 4 hrs 10/22/2019 Referrals Referral Date Details 03/10/2023 03/10/2023, Félix Hutchins Next Appt Details Follow Up: 1 Year, Reason: H &P Progress Notes * Examination Category Sub-Category Detail Notes General Examination GENERAL APPEARANCE: in no ac nathanael distress, well developed, well nourished HEAD: normocephalic, atrau matic NECK/THYROID: HEART: no murmurs, regular rate and rhythm, S1, S2 normal LUNGS: clear to auscultatio n bilaterally ABDOMEN: normal, bowel sounds present, soft, nontender, nondistended SKIN: warm and dry, loss o f hair above both ankles laterally EXTREMITIES: no edema PSYCH: alert, oriented, cog nitive function intact Consultation Request Notes Referral Date Referring Provider Referred Provider Not es 01/18/2023 Rob Mcnair Peter Alopecia
== END 2024-07-16 14:15 | disposition home or self-care (01) ==
LOC: HO.HMCSH 13:49
PROVIDERS: PCP Internal Medicine; Visit Provider Internal Medicine
DX: Z00.00 Encounter for general adult medical examination without abnormal findings (principal); R51.9 Headache, unspecified

== ENCOUNTER → 2024-07-16 13:49 | Outpatient (BNVA) | payer OTHER, SELFPAY | PROVIDERS: PCP Internal Medicine; Visit Provider Internal Medicine | DX: Z00.01 Encounter for general adult medical examination with abnormal findings (principal); R51.9 Headache, unspecified; J45.909 Unspecified asthma, uncomplicated | CPT/HCPCS: 99212; 99386 ==

== ENCOUNTER 2024-12-30 13:04 | Emergency (ER) | payer OTHER, SELFPAY ==
[2024-12-30 13:19] VITALS: BP 122/67; PULSE 75; RESP 16; TEMP 36.4; O2SAT 98; BMI 21.9
--- NOTE | 2024-12-30 13:33 | ED_ITS ---
HPI - Extremity Problem General Chief complaint: Extremity Injury, Upper Stated complaint: pinched nerve on right shoulder Time Seen by Provider: 12/30/24 13:27 Source: patient Mode of arrival: ambulatory Limitations: no limitations History of Present Illness ED Provider: Arline Thomason APRN HPI Narrative: 39-year-old male with no known medical history who is right-hand dominant presents the ER with complaints of left posterior shoulder pain after lifting injury at work 2 days ago. Patient reports been taking Motrin and Tylenol and use a medicated patches with continued pain. He reports pain radiates to the upper left arm. There is no associated weakness, numbness or tingling of the extremity. No previous injury. Related Data Previous Rx's ?Medication ?Instructions ?Recorded cyclobenzaprine 10 mg tablet 10 mg PO TID PRN muscle s pasm #12 12/30/24 tabs prednisone 20 mg tablet 40 mg (2 x 20 mg) PO DAILY # 10 tabs 12/30/24 Allergies Allergy/AdvReac Type Severity Reaction Status Date / Time Penicillins Allergy Anaphylaxis Verified 12/30/24 13:21 Review of Systems 2 Review of Systems: Yes all other systems are reviewed and are negative Constitutional: Constitutional: Reports no additional constitutional complaints, Denies body ache(s), Denies chills, Denies fever(s), Denies headache(s) and Denies weakness Eyes: Eyes: Reports no additional eye complaints and Denies change in vision ENT: Reports system reviewed and no additional complaints, except as documented, Denies dizziness, Denies headache(s), Denies nasal congestion, Denies nasal discharge and Denies neck pain Cardiovascular: Cardiovascular: Reports no additional cardiovascular complaints, Denies chest pain, Denies leg edema and Denies dyspnea Respiratory: Respiratory: Reports no additional respiratory complaints, Denies cough and Denies dyspnea Gastrointestinal: Gastrointestinal: Reports no additional gastrointestinal complaints, Denies abdominal pain, Denies diarrhea, Denies nausea and Denies vomiting Genitourinary: Genitourinary: Denies urinary incontinence Musculoskeletal: Musculoskeletal: Reports no additional musculoskeletal complaints, Reports back pain, Denies arthralgias, Denies joint swelling, Denies neck pain, Denies numbness and Denies tingling Integumentary/Breasts: Skin/Breast: Reports system reviewed and no additional complaints, except as docu and Denies rash Neurologic: Reports system reviewed and no additional complaints, except as documented, Denies Abnormal speech present, Denies dizziness, Denies headache(s), Denies numbness, Denies tingling and Denies weakness PMFSH Past Medical History Attestation statement: The following information was validated with the patient. Source: old records reviewed and nursing notes reviewed Medical History Epidermal inclusion cyst Asthma Surgical History No significant past surgical history Social History Social History Alcohol intake: never Patient Tobacco Use Status: Never used Tobacco Advance Directives: No Advance Directives Information Provided: Yes Physical Exam 2 Vital Signs: Vital Signs: Last Vital Signs Temp 97.6 F 12/30/24 13:59 Pulse 75 12/30/24 13:59 Resp 16 12/30/24 13:59 BP 122/67 12/30/24 13:59 Pulse Ox 98 12/30/24 13:59 O2 Del Method Room Air 12/30/24 13:59 BMI result Body Mass Index 21.9 Const: General: cooperative, healthy appearing, comfortable and no acute distress Orientation/consciousness: patient oriented x3 Limitations: no limitations HEENT: Head: Yes normal to inspection Ears: hearing grossly normal bilaterally General nose exam: Normal external nose present Face and sinus: Yes normal facial exam Mouth: Normal oral and palatal mucosa present Throat: Yes posterior oropharynx normal Eyes: General: appearance normal, both eyes and all related structures P upils: Equal, round and reactive pupils present Neck: Other: No cervical midline tenderness, step-offs or deformity Neck: Yes normal visual inspection Chest: Chest palpation & inspection: normal inspection of the chest Resp: Effort & Inspection: normal respiratory effort Auscultation: clear to auscultation bilaterally Cardio: Rate: regular rate Rhythm: regular rhythm Peripheral pulses: P eripheral pulses 2+ throughout GI: Inspection: Yes normal to inspection Palpation (GI): Soft to palpation and nontender Auscultation: normal bowel sounds : General: Yes no CVA tenderness Back/Spine/Pelvis: Back: no CVA tenderness Thoracic/Lumbar Spine: thoracic and lumbar spine normal to inspection Back/spine/pelvis image: 1. Pain on palpation with palpable muscle spasm Skin: General skin exam: no rashes or lesions noted Neuro: General: patient oriented x3, moves all extremities, no focal motor deficits and normal sensation to monofilament Cranial nerves: Yes CN's II-XII intact bilaterally, Yes Equal, round and reactive pupils present, Yes Bilaterally intact EOM present, Yes Nystagmus not present, Yes Normal facial strength present and Yes Midline tongue present Cognition (Neuro): normal cognition Speech: No Abnormal speech present Gait exam (Neuro): Normal gait present Motor exam (neuro): 5/5 motor strength present throughout S ensory Exam: Normal double simultaneous stimulation for sensation Extrem: General: Yes normal to inspection Medical Decision Making Medical Decision Making MDM Narrative: 39-year-old male with no known medical history who is right-hand dominant presents the ER with complaints of left posterior shoulder pain after lifting injury at work 2 days ago. Patient reports been taking Motrin and Tylenol and use a medicated patches with continued pain. He reports pain radiates to the upper left arm. There is no associated weakness, numbness or tingling of the extremity. No previous injury. Will muscle spasm on exam. No CVA tenderness. No chest wall tenderness. Lungs are clear. No midline tenderness over the spine. Normal neuro exam no focal deficits. Likely muscle spasm. Will recommend muscle relaxant, Motrin, Tylenol and follow up with primary care doctor for any continued symptoms. Differential Diagnosis Differential Diagnoses: The differential diagnosis associated with the presentation includes Muscle strain, muscle sprain Lumbar radiculopathy, lumbar strain, herniated disc Low suspicion for epidural abscess with no risk factors of same, no neurological deficits or red flag symptoms Low suspicion for ACS with no reports of chest pain, shortness of breath, diaphoresis or vomiting Low suspicion for pyelonephritis or renal colic with no CVA tenderness, urinary symptoms reported Low suspicion for malignancy with no red flag symptoms, more acute onset Low suspicion for cord compression, cauda equina with normal neurological exam and no red flag symptoms Admission/Observation Consideration of admission/observation: Escalation of care including admission/observation considered Prescription Management I considered prescription management with: Pain Medication Discharge Plan Discharge Clinical Impression: Muscle strain Patient Disposition: Home, Self-Care Instructions: Muscle Strain (ED) Additional Instructions: Continue to alternate Motrin/Tylenol Continued the medicated patches Take the prescriptions as prescribed Apply heat to the area as needed Follow-up with your primary care doctor for any continued symptoms Prescriptions: New cyclobenzaprine 10 mg tablet 10 mg PO TID PRN (Reason: muscle spasm) Qty: 12 0RF prednisone 20 mg tablet 40 mg PO DAILY Qty: 10 0RF Referrals: Rob Mcnair DO [Primary Care Provider, Medical] - 5 days Referral Note: f/u er visit Interventions: ED Discharge Assessment Last Done: 12/30/24 13:59 Discharge Date/Time: 12/30/24 13:59 Print Language: Romansh
--- OUTSIDE RECORDS SUMMARY | 2024-12-30 13:35 | XMS_ITS | Clinical Summary ---
Author Organization [facility] Facility Address [address] [place] [id number] Care Team Providers Care Lead Cargoman Name Role Phone XuRob gan Primary Care [...] 19+ 3-dose series) 2002 Influenza Vaccine (#1) 2025 Pneumococcal Vaccine: Peds ( 0 to 5 Years) and At-Risk Patients (6 to 49 Years) Aged Out No longer eligible b ased on patient's age to complete this topic Insurance [facility] Care Teams Lead Cargoman Relationship Specialty Start Date End Date Rob Mcnair DO [address] [place] [address] PCP - General Internal Medicine 09/03/20
[2024-12-30 13:59] VITALS: BP 122/67; PULSE 75; RESP 16; TEMP 36.4; O2SAT 98
== END 2024-12-30 13:59 | disposition home or self-care (01) ==
PROVIDERS: Emergency Provider Emergency Medicine; PCP Internal Medicine
DX: G56.21 Lesion of ulnar nerve, right upper limb (principal)
CPT/HCPCS: 99283

== ENCOUNTER 2025-02-14 14:10 | Outpatient (AMB) | payer OTHER, SELFPAY ==
--- NOTE | 2025-02-14 14:12 | MHC.PC.OV ---
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 Informal Required: No Accompanied by: Self / Same As Patient Allergies Penicillins Allergy (Verified 02/14/25 15:16) Anaphylaxis Medication List - Last Reconciled 02/14/25 by Maryjane Pandey PA-C No Known Home Meds Tobacco use date assessed: 02/14/25 Dental Screening Dental Screen Date: 02/14/25 Did you have a dental visit in the last 12 months?: Yes Did you have a dental problem in the last 6 months where you did not have access to dental care?: No Was dental information given to patient?: Patient has dentist HPI 6 month follow up HPI Details The patient is a 39-year-old male presenting for a six-month follow-up and evaluation of a submandibular gland mass. The patient reports a history of cold-induced bronchospasm, which occurs during seasonal transitions, particularly from summer to winter. He experiences bronchospasm characterized by tightness and squeezing of the airways, which is alleviated by the use of an albuterol inhaler as needed. The patient has identified a submandibular gland mass, which he describes as a small, stable nodule that has not increased in size. He seeks further evaluation and potential removal of the mass due to its persistence and the lack of definitive diagnosis from previous consultations. The patient suspects a vitamin D deficiency due to feelings of fatigue and lack of mental energy, despite maintaining a healthy lifestyle with regular exercise. He does not take any medications or supplements currently and prefers natural interventions. Preventative care measures discussed include colon cancer screening with Cologuard, which is planned for when the patient reaches 43 years of age, given the absence of family history of cancer. 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 - Exercise: Engages in regular physical activity, walking three times a week. - Family: with one child who is in the [employer], indicating a stable family environment. [facility] Medical History (Updated 02/14/25 @ 15:19 by Maryjane Pandey PA-C) Preventative health care Vitamin D deficiency Cold induced bronchospasm Submandibular gland mass Epidermal inclusion cyst Asthma Surgical History No significant past surgical history Social History Housing: House Alcohol intake: current Alcohol intake frequency: does not drink Patient Tobacco Use Status: Never used Tobacco service: No Current occupational status: employed Cognitive needs: No Hearing needs: No Vision needs: No Questionnaire PHQ-9 Over the last 2 weeks, how often have you been bothered by any of the following problems? 1. Little interest or pleasure in doing things: not at all 2. Feeling down, depressed, or hopeless: not at all 3. Trouble falling or staying asleep, or sleeping too much: not at all 4. Feeling tired or having little energy: not at all 5. Poor appetite or overeating: not at all 6. Feeling bad about yourself - or that you are a failure or have let yourself or your family down: not at all 7. Trouble concentrating on things, such as reading the newspaper or watching television: not at all 8. Moving or speaking so slowly that other people could have noticed. Or the opposite - being so fidgety or restless that you have been moving around a lot more than usual: not at all 9. Thoughts that you would be better off or of hurting yourself in some way: not at all Total score: 0 Depression Screening Interpretation: Negative Depression Screening Done: Yes 72145 - PHQ-9 Billing: Yes Source: Developed by Drs. Rob Gooden, Shea Sandoval, Joshua Espinal and colleagues, with an educational yuki from [employer]. Thrive Questionnaire Date Thrive assessed: 02/14/25 I am a: Patient What is your living situation today?: I have a steady place to live Within the past 12 months, did the food you bought not last and you didn't have the money to get more?: Never true Within the past 12 months, did you worry whether your food would run out before you got money to buy more?: Never true Do you have trouble paying for medicines?: No Do you have trouble getting transportation to medical appointments?: No Do you have trouble paying your heating and electricity bill?: No Do you have trouble taking care of your child, family member or friend?: No Do you have trouble with day-to-day activities such as bathing, preparing meals, shopping, managing finances, etc.?: No Are you currently unemployed and looking for a job?: No Are you interested in more education?: No Please select the resources that you would like help with: None THRIVE Score: 0 AUDIT C Alcohol Use Questionnaire (AUDIT-C) 1. How often do you have a drink containing alcohol?: Never 3. How often do you have six or more drinks on one occasion?: Never Total Score: 0 Score Reviewed/Action Taken: No CHRIS-7 AMB Questionnaire CHRIS-7 Date CHRIS - 7 assessed: 02/14/25 Feeling nervous, anxious, or on edge: 0 = Not at all Not being able to stop or control worryin = Not at all Worrying too much about different things: 0 = Not at all Trouble relaxin = Not at all Being so restless that it is hard to sit still: 0 = Not at all Becoming easily annoyed or irritable: 0 = Not at all Feeling afraid as if something awful might happen: 0 = Not at all Total CHRIS-7 score (0-4 normal; 5-9 mild; 10-14 moderate; 15-21 severe): 0 Source: Developed by Drs. Rob Gooden, Shea Sandoval, Joshua Espinal and colleagues, with an educational yuki from [employer]. CHRIS-7 Assessment Billing CHRIS-7 Assessment Tool: CHRIS-7 Assessment 40936 Review of Systems Const Details: - Respiratory: Reports cold-induced bronchospasm. Denies chronic cough or wheezing. - Gastrointestinal: Denies black or bloody stools, abdominal pain, or unintentional weight loss. - Neurological: Reports fatigue and lack of mental energy. Denies headaches or dizziness. All systems reviewed & are unremarkable except as noted in HPI and below Physical exam (Primary Care) Vital Signs: Last Vital Signs Temp 97.9 F 02/14/25 14:17 Pulse 68 02/14/25 14:17 Resp 14 02/14/25 14:17 BP 117/79 02/14/25 14:17 Pulse Ox 99 02/14/25 14:17 Oxygen Delivery Method Room Air 02/14/25 14:17 Care Plan Goal for BP management: <140/90 at Goal BMI result Body Mass Index 22.9 Normal BMI Tobacco/Smoking Status: Tobacco use Status Tobacco use date assessed 02/14/25 02/14/25 14:14 Patient Tobacco Use Status Never used Tobacco 02/14/25 14:22 PHQ-9: PHQ-9 Score PHQ-9: Total score 0 02/14/25 14:20 Depression Screening Interpretation: Negative Thrive Assessment: Date of Thrive Assessment Date Thrive assessed 02/14/25 02/14/25 14:14 Const Other: Appearance: Alert. Oriented X3. No acute distress. Head: Normal external exam. Normocephalic. Atraumatic. Eyes: Pupils are equal, round, and reactive to light. Extraocular movements intact. Conjunctiva and sclera normal. Eyelids normal. Ears: External auditory canal normal. Tympanic membranes normal. Throat: Pharynx normal. Uvula midline. Moist mucous membranes. Neck: Normal inspection. Neck supple. Full range of motion. No adenopathy. Thyroid Normal. No meningeal signs. Patient noted to have a small cyst like lump to mid submandibular area. No signs of infection. No additional neck mass noted. Cardiovascular: Normal heart rate and rhythm. Heart sound normal. No murmurs noted. Pulses normal throughout. Respiratory: No respiratory distress. Painless inspiration. Breath sounds normal. No wheezes/rales/rhonchi noted. Chest nontender. No accessory muscle usage noted or decreased air movement noted. Abdomen: Soft and nontender. Bowel sounds normal in all 4 quadrants. No distention noted. No organomegaly noted. No visible injury noted. Back: No costovertebral angle tenderness. Full range of motion noted. Skin: Skin warm and dry. Normal skin color. Normal skin turgor. No rashes/lesions/lacerations noted. Extremities: No lower extremity edema. Extremities exhibit normal range of motion. Extremities nontender. Neuro: Oriented X 3. No motor deficit. No sensory deficit. Reflexes normal. Results Reviewed Results Reviewed: - Labs: Comprehensive blood panel including CBC, kidney and liver function tests, magnesium, vitamin B12, vitamin D, folate, thyroid function, testosterone, and PSA ordered. Coding Level of Care Code Est Pt Level 4 (98901) Complex EM visit Add On G2211 Diagnoses Cold induced bronchospasm J98.01 Submandibular gland mass K11.8 Vitamin D deficiency E55.9 Preventative health care Z00.00 Additional Codes PHQ-9 - 98499 - PHQ-9 Billing: Yes ([id number]) CHRIS-7 Assessment Billing - CHRIS-7 Assessment Tool: CHRIS-7 Assessment [id number] ([id number]) Assessment & Plan Assessment & Plan (1) Cold induced bronchospasm: Code(s): J98.01 - Acute bronchospasm Category: Medical Plan: The patient experiences cold-induced bronchospasm, particularly during seasonal transitions. Management includes the use of an albuterol inhaler as needed to alleviate symptoms. (2) Submandibular gland mass: Code(s): K11.8 - Other diseases of salivary glands Category: Medical Plan: The patient has a submandibular gland mass, described as a stable nodule. Referral to an ENT specialist for further evaluation and potential removal has been made. (3) Vitamin D deficiency: Code(s): E55.9 - Vitamin D deficiency, unspecified Category: Medical Plan: The patient suspects a vitamin D deficiency due to fatigue and lack of mental energy. A comprehensive blood panel including vitamin D levels has been ordered to confirm the deficiency. (4) Preventative health care: Code(s): Z00.00 - Encounter for general adult medical examination without abnormal findings Category: Medical Plan: Cologuard screening is planned for when the patient reaches 45 years of age, given the absence of family history of cancer. Plan Plan Patient was informed and verbally consented to the use of an ambient scribe for clinic note documentation during this visit. 1. Cold-Induced Bronchospasm The patient experiences cold-induced bronchospasm, particularly during seasonal transitions. Management includes the use of an albuterol inhaler as needed to alleviate symptoms. 2. Submandibular Gland Mass The patient has a submandibular gland mass, described as a stable nodule. Referral to an ENT specialist for further evaluation and potential removal has been made. 3. Vitamin D Deficiency (Suspected) The patient suspects a vitamin D deficiency due to fatigue and lack of mental energy. A comprehensive blood panel including vitamin D levels has been ordered to confirm the deficiency. 4. Preventative Care: Colon Cancer Screening With Stool Test (Cologuard) Cologuard screening is planned for when the patient reaches 45 years of age, given the absence of family history of cancer. During the visit, we discussed the management of cold-induced bronchospasm with the use of an albuterol inhaler as needed. I recommended a referral to an ENT specialist for further evaluation of the submandibular gland mass, with the possibility of surgical removal if necessary. We also planned for a comprehensive blood panel to assess for vitamin D deficiency and other potential issues. Preventative care measures, including Cologuard screening for colon cancer, were discussed and planned for when the patient reaches 45 years of age. Orders: Orders Complete Blood Count Auto Diff Today Z00.00 - Encounter for general adult medical examination without abnormal findings Lipid Panel Today Z00.00 - Encounter for general adult medical examination without abnormal findings Liver Panel Today Z00.00 - Encounter for general adult medical examination without abnormal findings Dihydrotestosterone Today Z00.00 - Encounter for general adult medical examination without abnormal findings Testosterone, Free/Total Today Z00.00 - Encounter for general adult medical examination without abnormal findings PSA,Total (Free>4and<10) Today Z00.00 - Encounter for general adult medical examination without abnormal findings Vitamin B1 Today Z00.00 - Encounter for general adult medical examination without abnormal findings Zinc Today Z00.00 - Encounter for general adult medical examination without abnormal findings C Reactive Protein Today Z00.00 - Encounter for general adult medical examination without abnormal findings Comprehensive [place]. Panel Fast Today Z00.00 - Encounter for general adult medical examination without abnormal findings Hemoglobin A1c Today Z00.00 - Encounter for general adult medical examination without abnormal findings Magnesium Today Z00.00 - Encounter for general adult medical examination without abnormal findings DHEA Sulfate Today Z00.00 - Encounter for general adult medical examination without abnormal findings Vitamin D 25-OH Total Today Z00.00 - Encounter for general adult medical examination without abnormal findings Vitamin B12 and Folate Today Z00.00 - Encounter for general adult medical examination without abnormal findings TSH reflex Free T4 Today Z00.00 - Encounter for general adult medical examination without abnormal findings Vitamin A Today Z00.00 - Encounter for general adult medical examination without abnormal findings Referrals Ear/Nose/Throat Referral K11.8 - Other diseases of salivary glands Patient Instructions: - Use albuterol inhaler as needed for bronchospasm symptoms. - Schedule an appointment with an ENT specialist for evaluation of the submandibular gland mass. - Complete the blood work as ordered, ensuring to fast for 10-12 hours prior. - Plan for Cologuard screening at age 45.
[2025-02-14 14:17] VITALS: BP 117/79; PULSE 68; RESP 14; TEMP 36.6; O2SAT 99; BMI 22.9
--- OUTSIDE RECORDS SUMMARY | 2025-02-14 17:57 | XMS_ITS | Clinical Summary ---
Author Organization [facility] Facility Address [address] [place] [id number] Care Team Providers Care Investigative Assistant Name Role Phone XuRob gan Primary Care [...] patient's age to complete this topic Insurance [facility] Care Teams Investigative Assistant Relationship Specialty Start Date End Date Rob Mcnair DO [address] [place] [address] PCP - General Internal Medicine 09/03/20
--- OUTSIDE RECORDS SUMMARY | 2025-02-14 17:57 | XMS_ITS | Clinical Summary ---
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 Active Social History Tobacco Use Types Packs/Day Years Used Date Smoking Tobacco: Never Smokeless Tobacco: Never Alcohol Use Standard Drinks/Week Comments No 0 (1 standard drink = 0.6 oz pur e alcohol) Education Answer Date Recorded Are you interested in more education? Not on addi e 10/01/2022 Are you concerned about learning? Not on file 10/01/2022 No 10/01/2022 No 10/01/2022 Digital Access Answer Date Recorded No 10/30/2022 No 10/30/2022 No 10/30/2022 Reliable internet access at home? Not on file 10/30/2022 Device with a working camera? Not on file Sex and Gender Information Value Date Recorded Sex Assigned at Male 07/10/2017 3:46 PM EST Legal Sex Male 3:22 PM EST Gender Identity Male 07/10/2017 3:46 PM EST Sexual Orientation Straight 07/10/2017 3: 46 PM EST Last Filed Vital Signs Vital Sign Reading Time Taken Comments Blood Pressure 119/81 07/10/2017 3:43 PM EST Pulse 61 07/10/2017 3:43 PM EST Temperature 36.6 C (97.8 F) 07/10/2017 3:43 PM EST Respiratory Rate 16 07/10/2017 3:43 PM EST Oxygen Saturation 98% 07/10/2017 3:43 PM EST Inhaled Oxygen Concentration - - Weight 70.8 kg (156 lb) 07/10/2017 3:43 PM EST Height 170.2 cm (5' 7 ) 07/10/2017 3:43 PM EST Body Mass Index 24.43 07/10/2017 3:43 PM EST Plan of Treatment Health Maintenance Due Date Last Done Comments Adult Td,Tdap Booster 1983 LIPID PANEL 1983 DEPRESSION SCREENING 1995 INFLUENZA VACCINE (#1) 2025 06/24/2020 COVID-19 VACCINE (2 - 2024-2 6 season) 2025 09/02/2020 SMOKING STATUS SCREENING (On ce After 26 Yrs) Completed 07/10/2017 HEPATITIS C SCREENING Completed 04/24/2019 HIV ONE-TIME SCREENING (18-6 5 YEARS) Completed 04/24/2019 HEPATITIS A VACCINES Aged Out No long er eligible based on patient's age to complete this topic HIB VACCINES Aged Out No longer eligi ble based on patient's age to complete this topic MENINGOCOCCAL VACCINES (ACWY) Aged Out No longer eligible based on patient's age to complete this topic MENINGOCOCCAL VACCINES (B) Aged Out N o longer eligible based on patient's age to complete this topic PNEUMOCOCCAL VACCINES (0-49 years) Aged Out No longer eligible based on patient's age to complete this topic Medical Devices Not on file Procedures Procedure Name Priority Date/Time Associated Diagnosis Comments HEPATITIS C ANTIBODY, QUALITATIVE Routine 04/24/2019 3:26 PM EST Female infertility from Last 3 Months or Most Recently Relevant to Health Maintenance Results * Hepatitis C antibody, qualitative (04/24/2019 3:26 PM EST) HCV NON-REACTIV E NON-REACTI VE [facility] Blood 04/24/2019 3:26 PM EST 04/24/2019 3:29 PM EST us Rob Andrew MD LAB BLOOD ORDERABLES Final Resu lt [id number] [id number] from Last 3 Months or Most Recently Relevant to Health Maintenance [place] [address] [place] [address] [place] [address] [place] [address] [employer] DIRECT [employer] DIRECT [employer] DIRECT [employer] DIRECT [employer] DIRECT [employer] DIRECT [employer] DIRECT Care Teams Cannery Tender Engineer Relationship Specialty Start Date End Date Rob Mcnair DO [address] [place] [phone] PCP - General Internal Medicine 07/10/17 Additional Source Comments The information contained in this document represents components of the legal health record. It is not the complete legal health record.[facility]
== END 2025-02-14 14:52 | disposition home or self-care (01) ==
LOC: HO.HMCSH 14:10
PROVIDERS: PCP Internal Medicine; Visit Provider Physician Assistant Medical
DX: J98.01 Acute bronchospasm (principal); K11.8 Other diseases of salivary glands; E55.9 Vitamin D deficiency, unspecified; Z00.00 Encounter for general adult medical examination without abnormal findings

== ENCOUNTER → 2025-02-14 14:10 | Outpatient (BNVA) | payer OTHER, SELFPAY | PROVIDERS: PCP Internal Medicine; Visit Provider Physician Assistant Medical | DX: Z00.00 Encounter for general adult medical examination without abnormal findings (principal); J98.01 Acute bronchospasm; K11.8 Other diseases of salivary glands; E55.9 Vitamin D deficiency, unspecified; Z13.31 Encounter for screening for depression; Z13.39 Encounter for screening examination for other mental health and behavioral disorders | CPT/HCPCS: 96127; 99212 ==